=== PATIENT | male | born 1925 | race Caucasian/White ===

== ENCOUNTER → 2016-08-26 | Outpatient (CLI) | payer BC ==
[~2016-08-26] MED LIST: ACET325T96 PO; ACET650S11 PR; ANBESOL; ANBESOL TOP; APAP RE; ASCA500 PO; B-CO1CAP17 PO; B-COCAP2 PO; BEER PO; BENZ10GE38; BENZ10GE38 TOP; BISA10SU7 PR; BUSP5TAB59 PO; CALC0.2510 PO; CEPH500C2 PO; CHOL20009 PO; DIPH1TAB PO; FERR325T PO; FINA5TAB PO; FLUT0.0529 NAE; FLUT0.15 NAE; FRRS300 PO; FURO20TA PO; GABA-112 PO; HYDR2.5L TOP; IMDSR30 PO; ISOS30TA3 PO; LEVO100T7 PO; LEVO125T4 PO; LORA2CON IM; LVQ750 PO; MAGNSUS5 PO; MAGNSUS73 PO; NTRGSL/4 UT; NUTR-977 GJT; ONDA4TAB46 PO; OXGN; PANT40TA PO; PHNS125 PR; POLY1POW2 PO; RISP0.258 PO; RISP1TAB68 PO; SKINOIN22 TOP; SODIENE PR; SODIENE RE; TAMS0.4C38 PO; VENL150C PO; VENL1CAP92 PO; VENL37.593 PO; VENL75CA73 PO; VITACAP26 PO; VTMD1000 PO; [UNRECOGNIZED DRUG - SUPPLY] TOP; dulcolax RE; vitamin d PO
[2016-08-26 09:57] LABS: BLOOD UREA NITROGEN 36 mg/dl (7-18); BUN/CREATININE RATIO 19.7 (10-20); CALCIUM 9.1 mg/dl (8.5-10.1); CARBON DIOXIDE 25 mmol/L (21-32); CHLORIDE 105 mmol/L (98-107); GLUCOSE 101 mg/dl (70-99); POTASSIUM 4.1 mmol/L (3.5-5.1); SODIUM 140 mmol/L (136-145)
[2016-08-26 10:08] LABS: FERRITIN 62.9 ng/ml (8.0-388.0); TOTAL IRON BINDING CAPACITY 265 mcg/dl (250-450)
--- NOTE | 2016-09-01 07:12 | CODING QUERY NO DIAGNOSIS ---
: 1925 TREATMENT RENDERED WITHOUT A DIAGNOSIS To promote full compliance with coding requirements relating to patient care, physician participation is requested in all cases of production laborer uncertainty. Please assist us with providing a diagnosis/symptom for the test(s) below: A diagnosis/symptom was not documented on your Order. A valid diagnosis/symptom is required to bill all insurances. Please remember that we are unable to code a diagnosis of rule out, probable, possible, questionable, or suspected. Tests that require a diagnosis: * Iron DIAGNOSIS: * Ferritin DIAGNOSIS: Provider Signature: Date: Thank you Trisha Martinez Health Information Management Once completed, please kindly fax back to [phone] For questions please call [phone]
== END ==
LOC: C.LABFOXAN 09:14
PROVIDERS: ATTEND Internal Medicine
DX: R94.6 Abnormal results of thyroid function studies (principal); D63.1 Anemia in chronic kidney disease; D64.9 Anemia, unspecified

== ENCOUNTER → 2016-08-31 | Outpatient (CLI) | payer BC ==
[2016-08-31 09:57] LABS: HEMATOCRIT 35.3 % (42-52); MEAN CELL VOLUME 85.1 fL (80-100); MEAN CORPUSCULAR HGB CONC 32.9 g/dl (32-36); MEAN PLATELET VOLUME 10.9 fL (7.4-10.4); PLATELET COUNT 322 K/uL (130-400); RED BLOOD COUNT 4.15 M/uL (4.7-6.1); WHITE BLOOD COUNT 5.89 K/uL (4.8-10.8)
== END ==
LOC: C.LABFOXAN 09:06
PROVIDERS: ATTEND Internal Medicine
DX: D64.9 Anemia, unspecified (principal)

== ENCOUNTER → 2016-09-10 | Outpatient (CLI) | payer BC ==
[2016-09-10 12:09] LABS: HEMATOCRIT 33.2 % (42-52); MEAN CELL VOLUME 85.3 fL (80-100); MEAN CORPUSCULAR HGB CONC 32.8 g/dl (32-36); MEAN PLATELET VOLUME 10.6 fL (7.4-10.4); PLATELET COUNT 318 K/uL (130-400); RED BLOOD COUNT 3.89 M/uL (4.7-6.1); WHITE BLOOD COUNT 10.29 K/uL (4.8-10.8)
== END ==
LOC: C.LABFOXAN 11:43
PROVIDERS: ATTEND Internal Medicine
DX: K62.5 Hemorrhage of anus and rectum (principal)

== ENCOUNTER 2016-09-20 18:33 | Inpatient (IN) | payer BC, OTHER ==
[~2016-09-20] VITALS: Ht 165.1 cm; Wt 64.4 kg
[~2016-09-20 18:33] MED LIST changes: -ANBESOL TOP; -B-CO1CAP17 PO; -BENZ10GE38; -BENZ10GE38 TOP; -BUSP5TAB59 PO; -CEPH500C2 PO; -FERR325T PO; -FLUT0.0529 NAE; -FLUT0.15 NAE; -GABA-112 PO; -ISOS30TA3 PO; -LEVO100T7 PO; -LORA2CON IM; -LVQ750 PO; -MAGNSUS73 PO; -NTRGSL/4 UT; -NUTR-977 GJT; -ONDA4TAB46 PO; -OXGN; -POLY1POW2 PO; -RISP0.258 PO; -RISP1TAB68 PO; -SKINOIN22 TOP; -SODIENE PR; -VENL150C PO; -VENL1CAP92 PO; -VITACAP26 PO; -VTMD1000 PO; -dulcolax RE; -vitamin d PO
[2016-09-20 18:41] VITALS: Ht 165.1 cm; Wt 64.4 kg
[2016-09-20] MEDS ORDERED: SODIUM CHLORIDE 0.9% 1000ML 1,000 ML IV STA (18:46)
--- NOTE | 2016-09-20 18:48 | EMERGENCY ROOM VISIT NOTE ---
History Report prepared by Luis M: Larisa Kimball Under the Supervision of: Dr. Shravan Diaz D.O. First contact with patient: 18:37 Stated Complaint: GI BLEED History of Present Illness The patient is a 89 year old male who presents to the Emergency Room with complaints of constant right shoulder pain beginning today. The patient states that he fell on his shoulder today and he thinks that it is broken. He complains of a headache. The patient's facility where he lives was concerned that he had a GI bleed. The patient denies any black stools, bloody stools, chest pain, and abdominal pain. Per nursing staff, they are not sure of the patient's mental status. Source of History: patient, nursing staff Onset: today Position: shoulder (right) Timing: constant Associated Symptoms: + headache, No abdominal pain, No chest pain Note: The patient denies any black stools, bloody stools. Review of Systems See HPI for pertinent positives & negatives. A total of 10 systems reviewed and were otherwise negative. Past Medical & Surgical Medical Problems: (1) Anemia (2) Atrial fibrillation (3) AVM (arteriovenous malformation) (4) Benign prostatic hyperplasia (5) Chronic kidney disease stage 3 (6) Coronary artery disease (7) Diabetes mellitus type 2 (8) Diastolic CHF, chronic (9) Fracture of proximal end of left humerus (10) Gastroesophageal reflux disease (11) History meningioma T3-T4 (12) History of amiodarone toxicity (13) History of atrial fibrillation (14) History of colonic AVM's (15) History of delirium (16) History of duodenal ulcer (17) History of hyperparathyroidism (18) History of supraventricular tachycardia (19) Hyperlipidemia (20) Hypothyroidism (21) Idiopathic peripheral neuropathy (22) Iron deficiency anemia (23) Melena (24) Mitral valve regurgitation (25) Monoclonal gammopathy (26) Mood disorder (27) Osteoporosis (28) Peripheral vascular disease (29) Restless leg syndrome Surgical Problems: (1) s/p appendectomy (2) s/p cataract surgery (3) s/p inguinal hernia repair (4) s/p left JEFFREY 1996 (5) s/p ORIF right hip fx 2010 (6) s/p resection thoracic meningioma Family History Omit secondary to age Social History Smoking Status: Never Smoker Drug Use: none Marital Status: Housing Status: lives with family Occupation Status: retired Current/Historical Medications Scheduled Ascorbic Acid (Vitamin C), 1 TAB PO DAILY Bisacodyl (Bisac-Evac), 1 SUPP SC UD Calcitriol (Rocaltrol Cap), 0.25 MCG PO 3XWK Cholecalciferol (Vitamin D), 2,000 UNITS PO DAILY Ferrous Sulfate (Iron Supplement *), 325 MG PO DAILY Finasteride (Proscar), 5 MG PO DAILY Fluticasone Propionate (Nasal) (Flonase), 2 SPRAYS VINNY DAILY Furosemide (Lasix), 20 MG PO BID Hydrocortisone (Topical) (Hydrocortisone), 1 APPLN TOP BID Isosorbide Mononitrate (Isosorbide Mononitrate ER), 30 MG PO DAILY Levothyroxine Sodium (Levothyroxine Sodium), 1 TAB PO DAILY Magnesium Hydroxide (Milk Of Magnesia), 30 ML PO UD Nitroglycerin (Nitrostat), 0.4 MG UT PRN Pantoprazole (Protonix), 40 MG PO DAILY Sodium Phosphates (Qc Enema), 1 SUPP RE DIRECTED Tamsulosin Hcl (Flomax), 0.4 MG PO HS Venlafaxine Hcl (Venlafaxine Extended Rel), 37.5 MG PO DAILY Venlafaxine Hcl (Venlafaxine Extended Rel), 75 MG PO DAILY Vitamin B Cmplx/Vitc/Folic Ac (Nephrocaps), 1 CAP PO DAILY [Apap Suppository], 650 MG RE DIRECTED [Beer], 12 OZ PO PRN [Beer], 12 OZ PO DAILY [Opsite Dressing], 1 APPLN TOP DIRECTED Scheduled PRN Acetaminophen (Tylenol Supp), 1 SUPP SC Q4 PRN for Pain or Fever Acetaminophen Tab (Tylenol), 650 MG PO Q4 PRN for Pain or Fever Diphenhydramine Hcl (Benadryl Allergy), 1 CAP PO DIRECTED PRN for Itching Promethazine HCl (Phenadoz), 1 SUPP SC Q6 PRN for Nausea Miscellaneous Medications [anbesol gel] Allergies Coded Allergies: Amiodarone (Unverified Allergy, Severe, pulmonary toxicity, 08/28/16) Nortriptyline (Verified Allergy, Unknown, 08/28/16) Aspirin (Verified Adverse Reaction, Intermediate, HX GASTRIC ULCER, ) NSAIDs (Verified Adverse Reaction, Unknown, GI SYMPTOMS, 08/28/16) hx duodinal ulcer Physical Exam Vital Signs Date Time Temp Pulse Resp B/P Pulse Ox O2 Delivery O2 Flow Rate FiO2 09/20/16 20:23 78 18 124/63 94 Room Air 09/20/16 19:11 81 09/20/16 18:41 36.5 81 16 113/70 97 Room Air Physical Exam CONSTITUTIONAL/VITAL SIGNS: Reviewed / noted above. GENERAL: Slightly pale in appearance. INTEGUMENTARY: Warm, dry, and [place]. HEAD: Normocephalic. EYES: without scleral icterus or trauma. ENT/OROPHARYNX: clear and moist. LYMPHADENOPATHY/NECK: Is supple without lymphadenopathy or meningismus. RESPIRATORY: Lungs clear and equal. CARDIOVASCULAR: Regular rate and rhythm. GI/ABDOMEN: Soft and nontender. No organomegaly or pulsatile mass. No rebound or guarding. Normal bowel sounds. EXTREMITIES: Warm and well perfused. BACK: No CVA tenderness. NEUROLOGICAL: Intact without focal deficits. PSYCHIATRIC: normal affect. MUSCULOSKELETAL: Normally developed with good muscle tone. RECTAL: Black guaiac positive stool. Medical Decision & Procedures ER Provider Diagnostic Interpretation: X ray results and stated below per my interpretation and radiology interpretation. CHEST ONE VIEW PORTABLE FINDINGS: Left shoulder arthroplasty is unchanged in appearance. No pneumothorax or pleural effusion is present. Cardiomediastinal silhouette is stable. There are healed bilateral rib fractures. Mild bibasilar opacities, left greater than right, are present. There is no evidence of pulmonary edema. IMPRESSION: 1. Bibasilar opacities, left greater than right. The findings could reflect atelectasis or less likely consolidation. Radiographic follow up is recommended. 2. No pneumothorax. 3. Numerous old bilateral rib fractures. Electronically signed by: Eamon Rosario M.D. 09/20/2016 8:10 PM Dictated Date/Time: 09/20/2016 8:08 PM RIGHT SHOULDER MIN 2 VIEWS ROUTINE FINDINGS: Alignment of the right shoulder is anatomic. There is no acute fracture. There are multiple old right-sided rib fractures. There is mild arthritis of the right shoulder. Deformity of the right clavicle is likely old. IMPRESSION: No acute fracture or dislocation of the right shoulder. Electronically signed by: Eamon Rosario M.D. 09/20/2016 8:12 PM Dictated Date/Time: 09/20/2016 8:10 PM Laboratory Results 09/20/16 18:30 Red Blood Count 2.81, Mean Corpuscular Volume 83.6, Mean Corpuscular Hemoglobin 28.1, Mean Corpuscular Hemoglobin Concent 33.6, Mean Platelet Volume 9.1, Neutrophils (%) (Auto) 71.2, Lymphocytes (%) (Auto) 18.7, Monocytes (%) (Auto) 6.1, Eosinophils (%) (Auto) 2.6, Basophils (%) (Auto) 0.3, Neutrophils # (Auto) 6.34, Lymphocytes # (Auto) 1.66, Monocytes # (Auto) 0.54, Eosinophils # (Auto) 0.23, Basophils # (Auto) 0.03 09/20/16 18:30 Test 09/20/16 18:30 White Blood Count 8.90 K/uL (4.8-10.8) Red Blood Count 2.81 M/uL (4.7-6.1) Hemoglobin 7.9 g/dL (14.0-18.0) Hematocrit 23.5 % (42-52) Mean Corpuscular Volume 83.6 fL (80-100) Mean Corpuscular Hemoglobin 28.1 pg (25-34) Mean Corpuscular Hemoglobin Concent 33.6 g/dl (32-36) Platelet Count 488 K/uL (130-400) Mean Platelet Volume 9.1 fL (7.4-10.4) Neutrophils (%) (Auto) 71.2 % Lymphocytes (%) (Auto) 18.7 % Monocytes (%) (Auto) 6.1 % Eosinophils (%) (Auto) 2.6 % Basophils (%) (Auto) 0.3 % Neutrophils # (Auto) 6.34 K/uL (1.4-6.5) Lymphocytes # (Auto) 1.66 K/uL (1.2-3.4) Monocytes # (Auto) 0.54 K/uL (0.11-0.59) Eosinophils # (Auto) 0.23 K/uL (0-0.5) Basophils # (Auto) 0.03 K/uL (0-0.2) RDW Standard Deviation 51.5 fL (36.4-46.3) RDW Coefficient of Variation 16.9 % (11.5-14.5) Immature Granulocyte % (Auto) 1.1 % Immature Granulocyte # (Auto) 0.10 K/uL (0.00-0.02) Anisocytosis PRESENT Spherocytes 1+ Prothrombin Time 10.5 SECONDS (9.0-12.0) Prothromb Time International Ratio 1.0 (0.9-1.1) Activated Partial Thromboplast Time 30.7 SECONDS (21.0-31.0) Partial Thromboplastin Ratio 1.2 Anion Gap 10.0 mmol/L (3-11) Estimated GFR () 33.3 Estimated GFR (Non- 28.7 BUN/Creatinine Ratio 19.8 (10-20) Calcium Level 8.8 mg/dl (8.5-10.1) Total Bilirubin 0.2 mg/dl (0.2-1) Direct Bilirubin < 0.1 mg/dl (0-0.2) Aspartate Amino Transf (AST/SGOT) 14 U/L (15-37) Alanine Aminotransferase (ALT/SGPT) 18 U/L (12-78) Alkaline Phosphatase 81 U/L (45-117) Total Creatine Kinase 40 U/L (39-308) Creatine Kinase MB 2.6 ng/ml (0.5-3.6) Creatine Kinase MB Ratio 6.5 (0-3.0) Troponin I < 0.015 ng/ml (0-0.045) Total Protein 7.1 gm/dl (6.4-8.2) Albumin 2.9 gm/dl (3.4-5.0) Laboratory results as stated above per my review. Medications Administered Medications (Trade) Dose Ordered Sig/Reina Route Start Time Stop Time Status Last Admin Dose Admin Sodium Chloride (Nss 1000ml) 1,000 ml @ 200 mls/hr Q5H STAT IV 09/20/16 18:46 09/20/16 23:45 09/20/16 18:57 200 MLS/HR ECG Indication: other (shoulder pain) Rate (beats per minute): 79 Rhythm: sinus rhythm Findings: 1st degree AV block, no ectopy, other (no acute injury) ED Course 1836: Previous medical records were reviewed. The patient was evaluated in room A4B. A complete history and physical examination was performed. 1845: Sodium Chloride 80820 ml @ 200 mls/hr IV. 2030: Pantoprazole Sodium 1ea IV. 2041: Discussed the patient's case with Dr. Conner. The patient will be evaluated for further treatment and disposition. 2046: On reevaluation, the patient is hemodynamically stable. I discussed the results and findings with the patient. He verbalized agreement of the treatment plan. I spoke with Dr. Conner of the [facility] [place] [facility] [facility]. The patient will be evaluated for further management and care. Medical Decision Differential includes acute coronary syndrome, myocardial infarction, CVA, TIA, anemia, infection, pneumonia, UTI, pyelonephritis, poor nutrition, dehydration, electrolyte disturbance,hypoglycemia. This is a 89-year-old male who presents to the ED with a chief complaint of GI bleed. He was sent from [facility] for this. The patient complained of some right shoulder pain and thought he was here for a fall. He does have range of motion with the right shoulder. X-ray of the shoulder did not show fracture. Patient had no other complaints. He does appear slightly pale on exam. Stool is black and guaiac positive. Hemoglobin is 7.9. BUN is 40 creatinine is 2.0. The patient was told the results of the tests. He was given IV fluids. IV Protonix was given. I spoke with the hospitalist, who saw the patient for further inpatient care. Consults Time Called: 2028 Consulting Physician: Dr. Conner - [facility] [place] Returned Call: [phone] Discussed the patient's case with Dr. Conner. The patient will be evaluated for further treatment and disposition. Impression Primary Impression: Anemia Additional Impression: GI bleed Scribe Attestation The scribe's documentation has been prepared under my direction and personally reviewed by me in its entirety. I confirm that the note above accurately reflects all work, treatment, procedures, and medical decision making performed by me. Departure Information Dispostion Being Evaluated By Hospitalist Referrals Constantine Bautista (PCP) Problem Qualifiers
[2016-09-20 19:02] LABS: BASO % 0.3 %; BASO ABS # 0.03 K/uL (0-0.2); EOS % 2.6 %; HEMATOCRIT 23.5 % (42-52); IG% 1.1 %; LYMPH % 18.7 %; LYMPH ABS # 1.66 K/uL (1.2-3.4); MEAN CELL VOLUME 83.6 fL (80-100); MEAN CORPUSCULAR HEMOGLOBIN 28.1 pg (25-34); MEAN CORPUSCULAR HGB CONC 33.6 g/dl (32-36); MEAN PLATELET VOLUME 9.1 fL (7.4-10.4); MONO % 6.1 %; NEUT % 71.2 %; PLATELET COUNT 488 K/uL (130-400); RED BLOOD COUNT 2.81 M/uL (4.7-6.1)
[2016-09-20 19:12] LABS: PARTIAL THROMBOPLASTIN RATIO 1.2; PROTHROMBIN TIME (PATIENT) 10.5 SECONDS (9.0-12.0)
[2016-09-20 19:21] LABS: ALT/SGPT 18 U/L (12-78); AST/SGOT 14 U/L (15-37); BLOOD UREA NITROGEN 40 mg/dl (7-18); BUN/CREATININE RATIO 19.8 (10-20); CALCIUM 8.8 mg/dl (8.5-10.1); CARBON DIOXIDE 27 mmol/L (21-32); CHLORIDE 101 mmol/L (98-107); GLUCOSE 94 mg/dl (70-99); POTASSIUM 4.5 mmol/L (3.5-5.1); SODIUM 138 mmol/L (136-145)
[2016-09-20 19:28] LABS: ALKALINE PHOSPHATASE 81 U/L (45-117); ANISOCYTOSIS PRESENT; CKMB/CK RATIO 6.5 (0-3.0); COMPLETE YES; SPHEROCYTE 1+
--- NOTE | 2016-09-20 20:11 | DIAGNOSTIC IMAGING REPORT ---
CHEST ONE VIEW PORTABLE CLINICAL HISTORY: GI bleed. COMPARISON STUDY: Chest radiograph February 08, 2016. FINDINGS: Left shoulder arthroplasty is unchanged in appearance. No pneumothorax or pleural effusion is present. Cardiomediastinal silhouette is stable. There are healed bilateral rib fractures. Mild bibasilar opacities, left greater than right, are present. There is no evidence of pulmonary edema. IMPRESSION: 1. Bibasilar opacities, left greater than right. The findings could reflect atelectasis or less likely consolidation. Radiographic follow up is recommended. 2. No pneumothorax. 3. Numerous old bilateral rib fractures. Electronically signed by: Eamon Rosario M.D. 09/20/2016 8:10 PM Dictated Date/Time: 09/20/2016 8:08 PM
--- NOTE | 2016-09-20 20:13 | DIAGNOSTIC IMAGING REPORT ---
RIGHT SHOULDER MIN 2 VIEWS ROUTINE CLINICAL HISTORY: Right shoulder pain following fall. COMPARISON: Chest radiograph February 08, 2016. FINDINGS: Alignment of the right shoulder is anatomic. There is no acute fracture. There are multiple old right-sided rib fractures. There is mild arthritis of the right shoulder. Deformity of the right clavicle is likely old. IMPRESSION: No acute fracture or dislocation of the right shoulder. Electronically signed by: Eamon Rosario M.D. 09/20/2016 8:12 PM Dictated Date/Time: 09/20/2016 8:10 PM
[2016-09-20] MEDS ORDERED: PANTOprazole INJ 80 MG in DEXTROSE 5% 100ML IV SCH (20:45)
[2016-09-20] MEDS ORDERED: PANTOprazole INJ 40 MG in DEXTROSE 5% 100ML IV SCH (21:00)
[2016-09-20] MEDS ORDERED: FERR325T PO (21:14)
[2016-09-20] MEDS ORDERED: VENL150C PO (21:14)
[2016-09-20] MEDS ORDERED: DiphenhydrAMINE HCL 50 MG/ML VIAL IV PRN (21:15)
[2016-09-20] MEDS ORDERED: FLUT0.0529 NAE (21:15)
[2016-09-20] MEDS ORDERED: LORAZEPAM 2 MG/ML 1 ML VIAL IV PRN (21:15)
[2016-09-20] MEDS ORDERED: PROMETHAZINE HCL INJ 12.5 MG in SODIUM CHLORIDE 0.9% 50ML 50 ML IV PRN (21:15)
[2016-09-20] MEDS ORDERED: ONDANSETRON INJ 2 MG/ML 2 ML VIAL IV PRN (21:15)
[2016-09-20] MEDS ORDERED: MoRPHine SULFATE 2 MG/ML CARP IV PRN (21:15)
[2016-09-20] MEDS ORDERED: FLUT0.15 NAE ×2 (21:16→21:40)
[2016-09-20] MEDS ORDERED: LEVO100T7 PO (21:22)
[2016-09-20] MEDS ORDERED: B-CO1CAP17 PO (21:22)
[2016-09-20] MEDS ORDERED: POLY1POW2 PO (21:22)
[2016-09-20] MEDS ORDERED: NTRGSL/4 UT (21:24)
[2016-09-20] MEDS ORDERED: BENZ10GE38 TOP (21:28)
[2016-09-20] MEDS ORDERED: SODIENE PR (21:33)
[2016-09-20] MEDS ORDERED: MAGNSUS73 PO (21:33)
[2016-09-20] MEDS ORDERED: SKINOIN22 TOP (21:43)
[2016-09-20 21:49] VITALS: BMI 25.0
[2016-09-20 21:55] VITALS: BP 126/61; PULSE 78; TEMP 36.4; O2SAT 98
[2016-09-20 22:24] VITALS: BP 104/55; PULSE 73; TEMP 37.4; O2SAT 96
[2016-09-20] MEDS: SODIUM CHLORIDE 0.9% 1000ML 1,000 ML IV SCH (22:30)
[2016-09-20 22:48] LABS: HEMATOCRIT 20.4 % (42-52)
[2016-09-20 23:00] VITALS: BP 112/58; PULSE 71
--- NOTE | 2016-09-20 23:08 | History and Physical ---
History & Physical Date & Time of Service: Sep 20, 2016 at 22:53 Chief Complaint: Peptic Ulcer Disease,Upper Gi Bleed Primary Care Physician: Constantine Bautista History of Present Illness Source: patient, spouse The patient is an 89-year-old male presents emergency department with complaint of right shoulder pain that began earlier in the day per his statement however, nurses at [facility] have referred him for possible upper GI bleeding due to dark tarry stools. The patient has some baseline dementia, and his is with him the history of present illness. She reports that he has had a history of peptic ulcer disease with bleeding, the most recently received 2 units of packed red blood cells by Dr. Morrell on August 28. The patient denies abdominal or rectal pain, or any obvious bleeding issues. His reports that his last meal was at lunchtime. Past Medical/Surgical History Medical Problems: (1) Anemia Status: Chronic (2) Atrial fibrillation Status: Chronic (3) AVM (arteriovenous malformation) Status: Resolved (4) Benign prostatic hyperplasia Status: Chronic (5) Chronic kidney disease stage 3 Status: Chronic (6) Coronary artery disease Status: Chronic (7) Diabetes mellitus type 2 Permanent Comment: diet-controlled Status: Chronic (8) Diastolic CHF, chronic Status: Chronic (9) Fracture of proximal end of left humerus Status: Resolved (10) Gastroesophageal reflux disease Status: Chronic (11) History meningioma T3-T4 Permanent Comment: resected by Dr. Norris 11/06/14 Status: Chronic (12) History of amiodarone toxicity Status: Chronic (13) History of atrial fibrillation Status: Chronic (14) History of colonic AVM's Status: Chronic (15) History of delirium Status: Chronic (16) History of duodenal ulcer Status: Chronic (17) History of hyperparathyroidism Status: Chronic (18) History of supraventricular tachycardia Status: Chronic (19) Hyperlipidemia Status: Chronic (20) Hypothyroidism Status: Chronic (21) Idiopathic peripheral neuropathy Status: Chronic (22) Iron deficiency anemia Status: Chronic (23) Mitral valve regurgitation Status: Chronic (24) Monoclonal gammopathy Status: Chronic (25) Mood disorder Status: Chronic (26) Osteoporosis Status: Chronic (27) Peripheral vascular disease Status: Chronic (28) Restless leg syndrome Status: Chronic Surgical Problems: (1) s/p appendectomy Status: Chronic (2) s/p cataract surgery Status: Chronic (3) s/p inguinal hernia repair Status: Chronic (4) s/p left JEFFREY 1996 Status: Chronic (5) s/p ORIF right hip fx 2010 Status: Chronic (6) s/p resection thoracic meningioma Permanent Comment: Dr. Norris 11/06/14 Status: Chronic Family History Omit secondary to age Social History Smoking Status: Unknown if Ever Smoked Smokeless Tobacco Use: No Alcohol Use: none Drug Use: none Marital Status: Housing status: lives with family, assisted living Occupational Status: retired Immunizations History of Influenza Vaccine: Unknown Influenza Vaccine Date: Jun 13, 2012 History of Tetanus Vaccine?: Unknown History of Pneumococcal: Unknown Pneumococcal Date: December 23, 2000 History of Hepatitis B Vaccine: Unknown Multi-Drug Resistant Organisms History of MDRO: No Allergies Coded Allergies: Amiodarone (Unverified Allergy, Severe, pulmonary toxicity, 08/28/16) Nortriptyline (Verified Allergy, Unknown, 08/28/16) Aspirin (Verified Adverse Reaction, Intermediate, HX GASTRIC ULCER, ) NSAIDs (Verified Adverse Reaction, Unknown, GI SYMPTOMS, 08/28/16) hx duodinal ulcer Home Medications Scheduled Ascorbic Acid (Vitamin C), 500 MG PO QAM Calcitriol (Rocaltrol Cap), 0.25 MCG PO 3XWK Cholecalciferol (Vitamin D), 2,000 INTER.UNIT PO QAM Ferrous Sulfate (Ferrous Sulfate), 325 MG PO QAM Finasteride (Proscar), 5 MG PO QAM Fluticasone Propionate (Nasal) (Flonase Allergy Relief), 2 SPRAYS VINNY QAM Furosemide (Lasix), 20 MG PO BID Isosorbide Mononitrate (Isosorbide Mononitrate ER), 30 MG PO QAM Levothyroxine Sodium (Levothyroxine Sodium), 100 MCG PO QAM Pantoprazole (Protonix), 40 MG PO QPM Polyethylene Glycol 3350 (Bulk (Polyethylene Glycol 3350), 6.5 GM PO QAM Tamsulosin Hcl (Flomax), 0.4 MG PO HS Venlafaxine Hcl (Effexor Xr), 150 MG PO QAM Vitamin B Cmplx/Vitc/Folic Ac (Nephrocaps), 1 CAP PO QAM Scheduled PRN Acetaminophen (Tylenol Supp), 1 SUPP NE Q4H PRN for Pain or Fever Acetaminophen Tab (Tylenol), 650 MG PO Q4H PRN for Pain or Fever Benzocaine (Dental) (Anbesol), 1 APPLN TOP TID PRN for Pain Bisacodyl (Bisac-Evac), 1 SUPP NE UD PRN for Constipation Diphenhydramine Hcl (Benadryl Allergy), 25 MG PO Q4H PRN for Itching Magnesium Hydroxide (Milk of Magnesia 400 mg/5Ml), 30 ML PO UD PRN for Constipation Nitroglycerin (Nitrostat), 0.4 MG UT UD PRN for Chest Pain Promethazine HCl (Phenadoz), 1 SUPP NE Q6H PRN for Nausea Skin Protectants, Misc. (A+D First Aid), 1 APPLN TOP TID PRN for Skin Irritation Sodium Phosphate/Biphosphate (Fleet Enema), 1 EA NE UD PRN for Constipation [Beer], 12 OZ PO Q24H PRN for For Wishes Review of Systems The patient denies chest pain, palpitations, shortness of breath, cough, lower extremity swelling, vision change, hearing change, sore throat, fevers, chills, sweats, weight change, fatigue, nausea, vomiting, abdominal pain, pelvic pain, blood in urine or stool, dysuria, urinary frequency or urgency, lightheadedness , dizziness, headache, rash, abnormal bruising or bleeding, imbalance, focal or generalized weakness, numbness or tingling in arms or legs, back or neck pain, night sweats, or allergy symptoms. The review of systems is otherwise negative other than for that already noted above, and at least 10 systems have been reviewed. Physical Exam Vital Signs Date Time Temp Pulse Resp B/P Pulse Ox O2 Delivery O2 Flow Rate FiO2 09/20/16 22:24 37.4 73 18 104/55 96 2.0 09/20/16 21:55 36.4 78 18 126/61 98 Room Air 2.0 09/20/16 21:49 Nasal Cannula 09/20/16 21:31 36.5 75 18 132/64 99 09/20/16 21:13 75 18 132/64 99 Nasal Cannula 2.0 09/20/16 20:23 78 18 124/63 94 Room Air 09/20/16 19:11 81 09/20/16 18:41 36.5 81 16 113/70 97 Room Air The patient is awake, well-developed and adequately nourished, alert and oriented 3, normocephalic and atraumatic, lying in bed and in no acute distress. HEENT--PERRL, EOMI, mucous membranes and oropharynx dry. Neck--supple, no JVD or bruits, thyroid normal, trachea midline, no adenopathy. Heart--normal S1 and S2, no extra beats, no murmurs, rubs or gallops. Lungs--clear bilaterally, no respiratory distress, no accessory muscle use. Abdomen--normal bowel sounds and soft, nontender and nondistended, no hernias or masses, no organomegaly. Extremities--no cyanosis, clubbing or edema. There are good distal pulses b/l. Dermatologic--normal skin turgor, normal color, warm and dry, no abnormal lymph nodes, no rash. Neurologic--cranial nerves II through XII grossly intact, motor and sensory examination normal. Rheumatologic--normal range of motion for age. Psychiatric--normal affect. Diagnostics Laboratory Results Results Past 24 Hours Test 09/20/16 18:30 09/20/16 22:22 Range/Units White Blood Count 8.90 4.8-10.8 K/uL Red Blood Count 2.81 4.7-6.1 M/uL Hemoglobin 7.9 6.7 14.0-18.0 g/dL Hematocrit 23.5 20.4 42-52 % Mean Corpuscular Volume 83.6 80-100 fL Mean Corpuscular Hemoglobin 28.1 25-34 pg Mean Corpuscular Hemoglobin Concent 33.6 32-36 g/dl Platelet Count 488 130-400 K/uL Mean Platelet Volume 9.1 7.4-10.4 fL Neutrophils (%) (Auto) 71.2 % Lymphocytes (%) (Auto) 18.7 % Monocytes (%) (Auto) 6.1 % Eosinophils (%) (Auto) 2.6 % Basophils (%) (Auto) 0.3 % Neutrophils # (Auto) 6.34 1.4-6.5 K/uL Lymphocytes # (Auto) 1.66 1.2-3.4 K/uL Monocytes # (Auto) 0.54 0.11-0.59 K/uL Eosinophils # (Auto) 0.23 0-0.5 K/uL Basophils # (Auto) 0.03 0-0.2 K/uL RDW Standard Deviation 51.5 36.4-46.3 fL RDW Coefficient of Variation 16.9 11.5-14.5 % Immature Granulocyte % (Auto) 1.1 % Immature Granulocyte # (Auto) 0.10 0.00-0.02 K/uL Anisocytosis PRESENT Spherocytes 1+ Prothrombin Time 10.5 9.0-12.0 SECONDS Prothromb Time International Ratio 1.0 0.9-1.1 Activated Partial Thromboplast Time 30.7 21.0-31.0 SECONDS Partial Thromboplastin Ratio 1.2 Sodium Level 138 136-145 mmol/L Potassium Level 4.5 3.5-5.1 mmol/L Chloride Level 101 98-107 mmol/L Carbon Dioxide Level 27 21-32 mmol/L Anion Gap 10.0 3-11 mmol/L Blood Urea Nitrogen 40 7-18 mg/dl Creatinine 2.00 0.60-1.40 mg/dl Estimated GFR () 33.3 Estimated GFR (Non- 28.7 BUN/Creatinine Ratio 19.8 10-20 Random Glucose 94 70-99 mg/dl Calcium Level 8.8 8.5-10.1 mg/dl Total Bilirubin 0.2 0.2-1 mg/dl Direct Bilirubin < 0.1 0-0.2 mg/dl Aspartate Amino Transf (AST/SGOT) 14 15-37 U/L Alanine Aminotransferase (ALT/SGPT) 18 12-78 U/L Alkaline Phosphatase 81 45-117 U/L Total Creatine Kinase 40 39-308 U/L Creatine Kinase MB 2.6 0.5-3.6 ng/ml Creatine Kinase MB Ratio 6.5 0-3.0 Troponin I < 0.015 0-0.045 ng/ml Total Protein 7.1 6.4-8.2 gm/dl Albumin 2.9 3.4-5.0 gm/dl Diagnostic Radiology Patient Name: ARNALDO DE LA ROSA Unit Number: [id number] Dictated: 09/20/162009 Transcribed: 09/20/162009 JA Printed Date/Time: [~ rep prt dt]/[~ rep prt tm] [~ rep ct labl] - [~ rep ct ivnm] [facility] [place] [address] Dictated: 09/20/162009 Transcribed: 09/20/162009 JA Printed Date/Time: [~ rep prt dt]/[~ rep prt tm] [~ rep ct labl] - [~ rep ct ivnm] RIGHT SHOULDER MIN 2 VIEWS ROUTINE CLINICAL HISTORY: Right shoulder pain following fall. COMPARISON: Chest radiograph February 08, 2016. FINDINGS: Alignment of the right shoulder is anatomic. There is no acute fracture. There are multiple old right-sided rib fractures. There is mild arthritis of the right shoulder. Deformity of the right clavicle is likely old. IMPRESSION: No acute fracture or dislocation of the right shoulder. Electronically signed by: Eamon Rosario M.D. 09/20/2016 8:12 PM Dictated Date/Time: 09/20/2016 8:10 PM The status of this report is Signed. Draft = Not yet reviewed or approved by Radiologist. Signed = Reviewed and approved by Radiologist. <AttendingPhy></AttendingPhy> <FamilyPhy>Constantine Bautista</FamilyPhy> < PrimaryPhy>[facility]</PrimaryPhy> <UnitNumber>[id number]</UnitNumber> < VisitNumber>[id number]</VisitNumber> <PatientName>RJARNALDO</PatientName > <DateOfBirth>1925</DateOfBirth> <Location>[facility]</Location> <ServiceDate> 09/20/16</ServiceDate> <MNE>ESINDI</MNE> <OrderingPhy>Shravan Diaz D.O.</ OrderingPhy> <OrderingPhyMNE>f rep ord dr sandra</OrderingPhyMNE> <DictatingPhyMNE> f rep dict dr sandra</DictatingPhyMNE> <CCListMNE>f rep ct boaz</CCListMNE> < AdmittingPhyMNE>f pt admit dr sandra</AdmittingPhyMNE> <AttendingPhyMNE>f pt attend dr sandra</AttendingPhyMNE> <ConsultingPhyMNE>f pt consult dr sandra</ConsultingPhyMNE> <FamilyPhyMNE>f pt fam dr sandra</FamilyPhyMNE> <OtherPhyMNE>f pt other dr sandra</OtherPhyMNE> < PrimaryPhyMNE>f pt prim care dr sandra</PrimaryPhyMNE> <ReferringPhyMNE>f pt referring dr sandra</ReferringPhyMNE> [~ rep ct add3]] CHEST ONE VIEW PORTABLE CLINICAL HISTORY: GI bleed. COMPARISON STUDY: Chest radiograph February 08, 2016. FINDINGS: Left shoulder arthroplasty is unchanged in appearance. No pneumothorax or pleural effusion is present. Cardiomediastinal silhouette is stable. There are healed bilateral rib fractures. Mild bibasilar opacities, left greater than right, are present. There is no evidence of pulmonary edema. IMPRESSION: 1. Bibasilar opacities, left greater than right. The findings could reflect atelectasis or less likely consolidation. Radiographic follow up is recommended. 2. No pneumothorax. 3. Numerous old bilateral rib fractures. Electronically signed by: Eamon Rosario M.D. 09/20/2016 8:10 PM Dictated Date/Time: 09/20/2016 8:08 PM Th EKG EKG shows normal sinus rhythm at 79 bpm with first-degree heart block and no acute ST-T changes. Impression Assessment and Plan Upper GI bleed with history of peptic ulcer disease, and recent transfusion on August 28 of 2 units PRBC's--the patient was admitted to the telemetry unit for close monitoring. Will check an H&H every 6 hours, keep nothing by mouth status, placed on IV fluids, consult gastroenterology for possible EGD. We will continue the Protonix bolus and drip in the emergency department, and have Zofran 4 mg IV every 6 hours when necessary. Anemia--hemoglobin is 7.9 on entrance laboratories, but is likely actually lower than that due to hemoconcentration and dehydration. We'll transfuse 1 unit of PRBCs now, follow H&H as noted above. Next Atrial fibrillation/CAD/hypertension--the patient is being admitted to telemetry unit for rhythm monitoring. While he is nothing by mouth, we will hold furosemide 20 mg by mouth twice a day, and isosorbide mononitrate ER 30 mg by mouth daily. If blood pressure were to develop and warrants treatment, will start Nitropaste 1 inch to the anterior chest wall every 6 hours. BPH--while nothing by mouth, hold finasteride 5 mg by mouth daily and tamsulosin 0.4 mg by mouth at bedtime, will monitor for urinary retention. Hypothyroidism--change levothyroxin 125 mg by mouth daily to 62.5 mg IV daily. Anxiety/depression-- while nothing by mouth, hold venlafaxine ER 112.5 mg by mouth daily, and have available lorazepam 0.5 mg IV every 6 hours when necessary. Regular beer intake--his [place] records show 12 ounces by mouth daily and 12 ounce by mouth daily when necessary. He'll need to be monitored for withdrawal. Level of Care Telemetry Advanced Directives Existing Advance Directive: No Existing Living Will: No Existing Power of Animal Sitter: Yes Resuscitation Status FULL RESUSCITATION VTE Prophylaxis VTE Risk Assessment Done? Y/N: Yes Risk Level: Moderate Given or contraindicated: SCD's Social Service Consult Lives in Snf
[2016-09-20 23:10] VITALS: BP 112/58; PULSE 70; TEMP 37.1; O2SAT 93
[2016-09-21] VITALS (14 sets, daily range): BP systolic 108–140; BP diastolic 46–81; PULSE 59–88; TEMP 36.4–36.9; O2SAT 95–99
[2016-09-21] MEDS: PANTOprazole INJ 40 MG in DEXTROSE 5% 100ML IV SCH ×4 (01:47→17:06)
[2016-09-21 03:04] LABS: HEMATOCRIT 22.6 % (42-52); MEAN CELL VOLUME 83.1 fL (80-100); MEAN CORPUSCULAR HEMOGLOBIN 28.3 pg (25-34); MEAN CORPUSCULAR HGB CONC 34.1 g/dl (32-36); MEAN PLATELET VOLUME 8.7 fL (7.4-10.4); PLATELET COUNT 369 K/uL (130-400); RED BLOOD COUNT 2.72 M/uL (4.7-6.1); WHITE BLOOD COUNT 8.52 K/uL (4.8-10.8)
[2016-09-21 03:23] LABS: BUN/CREATININE RATIO 21.8 (10-20); CALCIUM 8.2 mg/dl (8.5-10.1); CREATININE 1.9 mg/dl (0.60-1.40); MAGNESIUM 2.1 mg/dl (1.8-2.4); POTASSIUM 4.4 mmol/L (3.5-5.1)
[2016-09-21 03:27] LABS: BASO ABS # 0.22 K/uL (0-0.2); BASOPHIL % 2.6 % (0-2); COMPLETE YES; EOSINOPHIL % 1.7 %; LYMPH ABS # 1.93 K/uL (1.2-3.4); LYMPHOCYTE % 22.6 %; MYELOCYTE % 0.9 %; NEUTROPHILS % 69.6 %
[2016-09-21] MEDS: FLUTICASONE PROPIONATE NA SPR 16 GM BTL NAE SCH (08:36)
[2016-09-21] MEDS ORDERED: LEVOTHYROXINE SODIUM INJ 62.5 MCG in SYRINGE 0 ML IV SCH (09:00)
[2016-09-21 09:40] LABS: HEMATOCRIT 23.7 % (42-52)
--- NOTE | 2016-09-21 10:54 | Gastrointestinal Consultation ---
Gastrointestinal Consultation Date of Consultation: Sep 21, 2016 Reason for Consultation: melena, anemia History of Present Illness Patient is a 89 year old male with past medical history significant for PUD, who is being evaluated for anemia and melena. He is unsure if he is having a black or tarry stools and is not oriented today. Per previous notes, nursing staff at the [facility] report dark tarry stools. He was brought to [facility] where he was found to have a HGB of 6.7. He recieved one unit of blood and responded with a HGB of 7.9 today. He has no complaints toady. Denies chest pain , SOB. He is not reporting any GI symptoms. Nursing staff on report no BM since he was admitted. EGD 2016: duodenal and gastric ulcers ROS is limited to due patient inability to provide accurate medical history. His was not at bedside during assessment. Past Medical/Surgical History Medical Problems: (1) Anemia Status: Chronic (2) GI bleed Status: Acute (3) Hypoxia Status: Acute (4) SOB (shortness of breath) Status: Acute (5) Upper GI bleed Status: Acute (6) Vomiting Status: Acute (7) Weakness Status: Acute Family History Omit secondary to age Social History Smoking Status: Unknown if Ever Smoked Drug Use: none Marital Status: Housing Status: lives with family Occupation Status: retired Allergies Coded Allergies: Amiodarone (Unverified Allergy, Severe, pulmonary toxicity, 08/28/16) Nortriptyline (Verified Allergy, Unknown, 08/28/16) Aspirin (Verified Adverse Reaction, Intermediate, HX GASTRIC ULCER, ) NSAIDs (Verified Adverse Reaction, Unknown, GI SYMPTOMS, 08/28/16) hx duodinal ulcer Current Medications Home Meds and Scripts Medications Dose Route/Sig Max Daily Dose Days Date Category Dose Instructions A+D First Aid (Skin Protectants, Misc.) 1 Oin Oin 1 Appln TOP TID PRN 09/20/16 Reported APPLY NEEDED TO LOWER EXTREMITY SKIN LESIONS Flonase Allergy Relief (Fluticasone Propionate (Nasal)) 50 Mcg/Act Spr 2 Sprays VINNY QAM 09/20/16 Reported Fleet Enema (Sodium Phosphate/Biphosphate) Angie 1 Ea TN UD PRN 09/20/16 Reported NEEDED EVERY 72 HOURS IF NO RESULTS FROM MPM OR DULCOLAX SUPPOSITORY Milk of Magnesia 400 mg/5Ml (Magnesium Hydroxide) 1 Jacki Jacki 30 Ml PO UD PRN 09/20/16 Reported NEEDED FOR NO BOWEL MOVEMENT FOR 2 DAYS Anbesol (Benzocaine (Dental)) 10 % Gel 1 Appln TOP TID PRN 09/20/16 Reported APPLY DIRECTED TO GUMS Polyethylene Glycol 3350 (Polyethylene Glycol 3350 (Bulk) 1 Pow Pow 6.5 Gm PO QAM 09/20/16 Reported MIX IN 8 OUNCES OF WATER Levothyroxine Sodium 100 Mcg Tab 100 Mcg PO QAM 09/20/16 Reported Nephrocaps (Vitamin B Complex/Vit C/Folic Acid) Cap 1 Cap PO QAM 09/20/16 Reported Effexor Xr (Venlafaxine Hcl) 150 Mg Cap 150 Mg PO QAM 09/20/16 Reported Ferrous Sulfate 325 Mg Tab 325 Mg PO QAM 09/20/16 Reported Benadryl Allergy (Diphenhydramine Hcl) 25 Mg Tab 25 Mg PO Q4H PRN 06/02/16 Reported [Beer] 12 Oz PO Q24H PRN 06/02/16 Reported Vitamin C (Ascorbic Acid) 500 Mg Tab 500 Mg PO QAM 06/02/16 Reported Nitrostat (Nitroglycerin) 0.4 Mg Tab 0.4 Mg UT UD PRN 02/08/[address] ONE TABLET UNDER THE TONGUE EVERY 5 MINUTES FOR UP TO 3 DOSES IF NEEDED FOR CHEST PAIN Vitamin D (Cholecalciferol) 2,000 Unit Tab 2,000 Inter.unit PO QAM 01/07/16 Reported Protonix (Pantoprazole Sodium) 40 Mg Tab 40 Mg PO QPM 01/07/16 Reported Phenadoz (Promethazine HCl) 12.5 Mg Supp 1 Supp TN Q6H PRN 12/01/15 Reported Bisac-Evac (Bisacodyl) 10 Mg Sup 1 Supp TN UD PRN 12/01/15 Reported NEEDED EVERY 48 HOURS IF NO RESULTS FROM MILK OF MAGNESIA Tylenol Supp (Acetaminophen) 650 Mg Sup 1 Supp TN Q4H PRN 12/01/15 Reported MAXIMUM 3GM APAP/24 HOURS Tylenol (Acetaminophen) 325 Mg Tab 650 Mg PO Q4H PRN 12/01/15 Reported MAXIMUM 3GM APAP/24 HOURS Isosorbide Mononitrate ER (Isosorbide Mononitrate) 30 Mg Tabcr 30 Mg PO QAM 12/01/15 Reported Flomax (Tamsulosin Hcl) 0.4 Mg Cap 0.4 Mg PO HS 10/28/15 Reported Rocaltrol Cap (Calcitriol) 0.25 Mcg Cap 0.25 Mcg PO 3XWK 10/28/15 Reported TAKE THIS MEDICATION EVERY WEDNESDAY,WEDNESDAY AND WEDNESDAY Lasix (Furosemide) 20 Mg Tab 20 Mg PO BID 07/13/12 Reported Proscar (Finasteride) 5 Mg Tab 5 Mg PO QAM 01/01/08 Reported Review of Systems Constitutional: No chills, No fever Respiratory: No cough, No shortness of breath Cardiac: No chest pain Abdomen: No constipation, No diarrhea, No nausea, No pain, No vomiting Physical Exam Date Time Temp Pulse Resp B/P Pulse Ox O2 Delivery O2 Flow Rate FiO2 09/21/16 07:42 36.6 65 16 120/56 98 Nasal Cannula 2.0 09/21/16 04:00 99 Nasal Cannula 2.0 09/21/16 03:41 36.5 71 21 134/48 98 Nasal Cannula 2.0 09/21/16 01:20 65 20 97 09/21/16 01:15 70 17 122/58 96 09/21/16 01:00 65 24 128/54 97 09/21/16 00:45 62 18 140/49 99 09/21/16 00:01 99 Nasal Cannula 2.0 09/20/16 23:10 37.1 70 20 112/58 93 Nasal Cannula 2.0 09/20/16 23:00 71 19 112/58 09/20/16 22:24 37.4 73 18 104/55 96 2.0 09/20/16 21:55 36.4 78 18 126/61 98 Room Air 2.0 09/20/16 21:49 Nasal Cannula 09/20/16 21:31 36.5 75 18 132/64 99 09/20/16 21:13 75 18 132/64 99 Nasal Cannula 2.0 09/20/16 20:23 78 18 124/63 94 Room Air 09/20/16 19:11 81 09/20/16 18:41 36.5 81 16 113/70 97 Room Air General Appearance: no apparent distress Eyes: PERRL ENT: hearing grossly normal Neck: supple, no adenopathy Respiratory/Chest: lungs clear, normal breath sounds (patient is not wearing his O2 - he was assisted on putting this back on), no respiratory distress, no accessory muscle use Cardiovascular: regular rate, rhythm, no gallop, no JVD, no murmur Abdomen: normal bowel sounds, non tender, soft, no organomegaly Neurologic/Psych: alert (he is only oriented to self & people), normal mood/ affect Laboratory Results Last 24 Hours Test 09/20/16 18:30 09/20/16 22:22 09/21/16 02:58 09/21/16 09:15 White Blood Count 8.90 K/uL 8.52 K/uL Red Blood Count 2.81 M/uL 2.72 M/uL Hemoglobin 7.9 g/dL 6.7 g/dL 7.7 g/dL 7.9 g/dL Hematocrit 23.5 % 20.4 % 22.6 % 23.7 % Mean Corpuscular Volume 83.6 fL 83.1 fL Mean Corpuscular Hemoglobin 28.1 pg 28.3 pg Mean Corpuscular Hemoglobin Concent 33.6 g/dl 34.1 g/dl Platelet Count 488 K/uL 369 K/uL Mean Platelet Volume 9.1 fL 8.7 fL Neutrophils (%) (Auto) 71.2 % Lymphocytes (%) (Auto) 18.7 % Monocytes (%) (Auto) 6.1 % Eosinophils (%) (Auto) 2.6 % Basophils (%) (Auto) 0.3 % Neutrophils # (Auto) 6.34 K/uL Lymphocytes # (Auto) 1.66 K/uL Monocytes # (Auto) 0.54 K/uL Eosinophils # (Auto) 0.23 K/uL Basophils # (Auto) 0.03 K/uL RDW Standard Deviation 51.5 fL 49.1 fL RDW Coefficient of Variation 16.9 % 16.2 % Immature Granulocyte % (Auto) 1.1 % Immature Granulocyte # (Auto) 0.10 K/uL Anisocytosis PRESENT Spherocytes 1+ Prothrombin Time 10.5 SECONDS Prothromb Time International Ratio 1.0 Activated Partial Thromboplast Time 30.7 SECONDS Partial Thromboplastin Ratio 1.2 Sodium Level 138 mmol/L 141 mmol/L Potassium Level 4.5 mmol/L 4.4 mmol/L Chloride Level 101 mmol/L 104 mmol/L Carbon Dioxide Level 27 mmol/L 26 mmol/L Anion Gap 10.0 mmol/L 11.0 mmol/L Blood Urea Nitrogen 40 mg/dl 42 mg/dl Creatinine 2.00 mg/dl 1.90 mg/dl Estimated GFR () 33.3 35.4 Estimated GFR (Non- 28.7 30.6 BUN/Creatinine Ratio 19.8 21.8 Random Glucose 94 mg/dl 91 mg/dl Calcium Level 8.8 mg/dl 8.2 mg/dl Total Bilirubin 0.2 mg/dl Direct Bilirubin < 0.1 mg/dl Aspartate Amino Transf (AST/SGOT) 14 U/L Alanine Aminotransferase (ALT/SGPT) 18 U/L Alkaline Phosphatase 81 U/L Total Creatine Kinase 40 U/L Creatine Kinase MB 2.6 ng/ml Creatine Kinase MB Ratio 6.5 Troponin I < 0.015 ng/ml Total Protein 7.1 gm/dl Albumin 2.9 gm/dl Neutrophils % (Manual) 69.6 % Lymphocytes % (Manual) 22.6 % Monocytes % (Manual) 2.6 % Eosinophils % (Manual) 1.7 % Basophils % (Manual) 2.6 % Myelocytes % 0.9 % Neutrophils # (Manual) 5.93 K/uL Total Absolute Neutrophils 5.93 K/uL Lymphocytes # (Manual) 1.93 K/uL Total Absolute Lymphocytes 1.93 K/uL Monocytes # (Manual) 0.22 K/uL Eosinophils # (Manual) 0.14 K/uL Basophils # (Manual) 0.22 K/uL Myelocytes # 0.08 K/uL Red Blood Cell Morphology Unremarkable Est Creatinine Clear Calc Drug Dose 22.9 ml/min Magnesium Level 2.1 mg/dl Impression Patient is a 89 year old male with melena and anemia. He has a history of ulcers. Differentials include gastritis, PUD, esophagitis etc Plan NPO EGD today Monitor stools Trend H&H Transfuse as needed. is now at bedside and will provide consent. ATTESTATION: I have performed a history and physical examination of this patient and reviewed the electronic record. Specifically, the patient reports no pain and on physical examination three is no abdominal tenderness. I have discussed the case with ALEXA Palma. The above note reflects my findings, conclusions, and recommendations. Raffy Danielle MD
--- NOTE | 2016-09-21 11:13 | Hospitalist Progress Note ---
Hospitalist Progress Note Date of Service Sep 21, 2016. (Krysten Figueroa ., DARIOC) Subjective Pt evaluation today including: conversation w/ patient, physical exam, chart review, lab review, review of studies, review of inpatient medication list Pain: None PO Intake: NPO Voiding: no voiding problems Patient reports feeling well. He has not had any more bowel movements since admission. He has been kept NPO and states that he is hungry but denies any other complaints. He is urinating without difficulty. The patient denies fevers, chills, sweats, chest pain, palpitations, claudication, cough, wheezing , shortness of breath, nausea, vomiting, abdominal pain, dysuria, hematuria, urinary retention, paralysis, weakness, numbness and tingling. Additional Comments: See HPI for pertinent positives and negatives. All other systems reviewed and negative. (Krysten Figueroa ., NELLIE-C) Objective Vital Signs Date Time Temp Pulse Resp B/P Pulse Ox O2 Delivery O2 Flow Rate FiO2 09/21/16 07:42 36.6 65 16 120/56 98 Nasal Cannula 2.0 09/21/16 04:00 99 Nasal Cannula 2.0 09/21/16 03:41 36.5 71 21 134/48 98 Nasal Cannula 2.0 09/21/16 01:20 65 20 97 09/21/16 01:15 70 17 122/58 96 09/21/16 01:00 65 24 128/54 97 09/21/16 00:45 62 18 140/49 99 09/21/16 00:01 99 Nasal Cannula 2.0 09/20/16 23:10 37.1 70 20 112/58 93 Nasal Cannula 2.0 09/20/16 23:00 71 19 112/58 09/20/16 22:24 37.4 73 18 104/55 96 2.0 09/20/16 21:55 36.4 78 18 126/61 98 Room Air 2.0 09/20/16 21:49 Nasal Cannula 09/20/16 21:31 36.5 75 18 132/64 99 09/20/16 21:13 75 18 132/64 99 Nasal Cannula 2.0 09/20/16 20:23 78 18 124/63 94 Room Air 09/20/16 19:11 81 09/20/16 18:41 36.5 81 16 113/70 97 Room Air (Krysten Figueroa ., PA-C) Physical Exam General Appearance: WD/WN, no apparent distress Eyes: normal inspection, PERRL, EOMI ENT: normal ENT inspection, hearing grossly normal, pharynx normal Neck: supple, no JVD, trachea midline Respiratory/Chest: lungs clear, normal breath sounds, no respiratory distress, + decreased breath sounds Cardiovascular: regular rate, rhythm, no gallop, + systolic murmur Abdomen: normal bowel sounds, non tender, soft Extremities: non-tender, normal inspection, no pedal edema Neurologic/Psychiatric: alert, normal mood/affect, + disoriented Skin: normal color, warm/dry, no rash (Krysten Figueroa ., PA-C) Laboratory Results Last 24 Hours Test 09/20/16 18:30 09/20/16 22:22 09/21/16 02:58 09/21/16 09:15 White Blood Count 8.90 K/uL 8.52 K/uL Red Blood Count 2.81 M/uL 2.72 M/uL Hemoglobin 7.9 g/dL 6.7 g/dL 7.7 g/dL 7.9 g/dL Hematocrit 23.5 % 20.4 % 22.6 % 23.7 % Mean Corpuscular Volume 83.6 fL 83.1 fL Mean Corpuscular Hemoglobin 28.1 pg 28.3 pg Mean Corpuscular Hemoglobin Concent 33.6 g/dl 34.1 g/dl Platelet Count 488 K/uL 369 K/uL Mean Platelet Volume 9.1 fL 8.7 fL Neutrophils (%) (Auto) 71.2 % Lymphocytes (%) (Auto) 18.7 % Monocytes (%) (Auto) 6.1 % Eosinophils (%) (Auto) 2.6 % Basophils (%) (Auto) 0.3 % Neutrophils # (Auto) 6.34 K/uL Lymphocytes # (Auto) 1.66 K/uL Monocytes # (Auto) 0.54 K/uL Eosinophils # (Auto) 0.23 K/uL Basophils # (Auto) 0.03 K/uL RDW Standard Deviation 51.5 fL 49.1 fL RDW Coefficient of Variation 16.9 % 16.2 % Immature Granulocyte % (Auto) 1.1 % Immature Granulocyte # (Auto) 0.10 K/uL Anisocytosis PRESENT Spherocytes 1+ Prothrombin Time 10.5 SECONDS Prothromb Time International Ratio 1.0 Activated Partial Thromboplast Time 30.7 SECONDS Partial Thromboplastin Ratio 1.2 Sodium Level 138 mmol/L 141 mmol/L Potassium Level 4.5 mmol/L 4.4 mmol/L Chloride Level 101 mmol/L 104 mmol/L Carbon Dioxide Level 27 mmol/L 26 mmol/L Anion Gap 10.0 mmol/L 11.0 mmol/L Blood Urea Nitrogen 40 mg/dl 42 mg/dl Creatinine 2.00 mg/dl 1.90 mg/dl Estimated GFR () 33.3 35.4 Estimated GFR (Non- 28.7 30.6 BUN/Creatinine Ratio 19.8 21.8 Random Glucose 94 mg/dl 91 mg/dl Calcium Level 8.8 mg/dl 8.2 mg/dl Total Bilirubin 0.2 mg/dl Direct Bilirubin < 0.1 mg/dl Aspartate Amino Transf (AST/SGOT) 14 U/L Alanine Aminotransferase (ALT/SGPT) 18 U/L Alkaline Phosphatase 81 U/L Total Creatine Kinase 40 U/L Creatine Kinase MB 2.6 ng/ml Creatine Kinase MB Ratio 6.5 Troponin I < 0.015 ng/ml Total Protein 7.1 gm/dl Albumin 2.9 gm/dl Neutrophils % (Manual) 69.6 % Lymphocytes % (Manual) 22.6 % Monocytes % (Manual) 2.6 % Eosinophils % (Manual) 1.7 % Basophils % (Manual) 2.6 % Myelocytes % 0.9 % Neutrophils # (Manual) 5.93 K/uL Total Absolute Neutrophils 5.93 K/uL Lymphocytes # (Manual) 1.93 K/uL Total Absolute Lymphocytes 1.93 K/uL Monocytes # (Manual) 0.22 K/uL Eosinophils # (Manual) 0.14 K/uL Basophils # (Manual) 0.22 K/uL Myelocytes # 0.08 K/uL Red Blood Cell Morphology Unremarkable Est Creatinine Clear Calc Drug Dose 22.9 ml/min Magnesium Level 2.1 mg/dl (Krysten Figueroa, DILIP) Assessment and Plan 89 y/o male with a history of a-fib, anemia, BPH, CKD stage III, CAD, HTN, CHF, HLD, hypothyroidism, and PUD who presents to the ED on 09/20 with dark, tarry stools per [facility] nursing and presumed upper GI bleed. Pt had recently had a blood transfusion ordered by Dr. Morrell at [facility] on 08/28/16 for a total of 2 units PRBCs. Hgb 7.9 upon arrival. Upper GI bleed -Admitted to telemetry -Keep NPO -Check H&H q6h -Given 1 unit PRBC 09/20, Hgb after transfusion 7.7, no more blood given -Repeat Hgb 7.9 -GI consulted, appreciate recs: pt will go for EGD today with Dr. Danielle -Continue IVF NSS at 75 cc/hr -Continue Protonix drip -Zofran 4 mg IV q6h Acute on chronic anemia secondary to acute blood loss -Hgb improving as above, continue to monitor H/o a-fib--currently in sinus rhythm CAD/HTN--stable -Hold Imdur due to NPO status Chronic CHF -Hold Lasix due to NPO status BPH -Hold Proscar and Flomax while NPO Hypothyroidism -PO Synthroid changed to Synthroid 62.5 mcg IV qd Anxiety/depression -Hold Effexor while NPO -Lorazepam 0.5 mg IV q4h prn anxiety Regular beer intake -[facility] records show 12 oz daily, monitor for alcohol withdrawal. Denies any withdrawal symptoms currently DVT prophylaxis -Hold chemical prophylaxis due to bleeding -DANITA velasco and SCDs Code Status -Level I, FULL RESUSCITATION STATUS (Krysten Figueroa ., PAMichaelC) Attending Attestation: Pt seen/examined, chart reviewed, and care plan d/w NELLIE Figueroa. I agree w/ the brown components of her documentation. I saw the patient following his EGD. EGD was NORMAL (esophagus, stomach, and duodenum all nl). He denied any nausea, emesis or abd pain; tolerated clears at dinner w/o difficulty. VSS, no fever gen - NAD neck - no JVD heart - 2/6 systolic murmur, RRR lungs - CTA b/l abd - soft, NT, ND, BS+ ext - no edema labs - most recent Hb 7.9 A/P: 1. acute/chronic anemia; acute component 2nd to blood loss. 2. h/o PUD. 3. 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 Per the staff he had another melena stool this afternoon but h/h, despite IVF, has remained stable following 1 unit of PRBCs. Since EGD was normal perhaps his bleeding is from a small bowel AVM. Will d/c protonix drip; place back on oral PPI. Repeat H/H tonight; if any further drop then Tx 1 additional unit of PRBCs. Allow clears. Fluid rate - drop to 50cc/hr in light of CKD stage 3 and diastolic CHF. Jose MAC MD (Corey Mac MD)
[2016-09-21] MEDS: SODIUM CHLORIDE 0.9% 1000ML 1,000 ML IV SCH (11:59)
[2016-09-21] MEDS ORDERED: PROPOFOL IV EMULSION 10 MG/ML 20 ML VIAL IV ONE (13:00)
[2016-09-21] MEDS ORDERED: LIDOCAINE HCL 2% 2 ML VIAL (20MG/ML) ONE (13:00)
--- NOTE | 2016-09-21 13:37 | GI REPORT ---
Procedure Date: 09/21/2016 1:14 PM Procedure: Upper GI endoscopy Indications: Iron deficiency anemia Medicines: Propofol per Anesthesia Complications: No immediate complications. Estimated blood loss: None. Estimated Blood Loss: Estimated blood loss: none. Procedure: Pre-Anesthesia Assessment: - Prior to the procedure, a History and Physical was performed, and patient medications, allergies and sensitivities were reviewed. The patient's tolerance of previous anesthesia was reviewed. - ASA Grade Assessment: III - A patient with severe systemic disease. After obtaining informed consent, the endoscope was passed under direct vision. Throughout the procedure, the patient's blood pressure, pulse, and oxygen saturations were monitored continuously. The scope was introduced through the mouth, and advanced to the third part of duodenum. The upper GI endoscopy was accomplished with ease. The patient tolerated the procedure well. Findings: The upper third of the esophagus, middle third of the esophagus and lower third of the esophagus were normal. The Z-line was regular. A small hiatus hernia was present. The entire examined stomach was normal. Biopsies were taken with a cold forceps for Helicobacter pylori testing. The examined duodenum was normal. Impression: - Normal upper third of esophagus, middle third of esophagus and lower third of esophagus. - Z-line regular. - Small hiatus hernia. - Normal stomach. Biopsied. - Normal examined duodenum. Recommendation: - [facility] to [facility] care. Raffy Danielle M.D. Raffy Danielle MD 09/21/2016 1:37:36 PM This report has been signed electronically. Note Initiated On: 09/21/2016 1:14 PM I attest to the content of the Intraoperative Record and orders documented therein, exceptions below
[2016-09-21] MEDS ORDERED: ETOMIDATE 2 MG/ML 20 ML VIAL IV ONE (13:45)
--- NOTE | 2016-09-21 14:00 | Anesthesiology Progress Note ---
Anesthesia Post Op Note Date & Time Sep 21, 2016 at 14:01 Vital Signs Pain Intensity: 0 Vital Signs Past 12 Hours Date Time Temp Pulse Resp B/P Pulse Ox O2 Delivery O2 Flow Rate FiO2 09/21/16 13:53 68 18 132/77 100 Nasal Cannula 2 09/21/16 13:42 67 18 121/64 100 Nasal Cannula 09/21/16 12:31 36.8 65 18 120/60 96 Nasal Cannula 2 09/21/16 12:07 36.4 65 16 108/46 97 Nasal Cannula 2.0 09/21/16 12:00 Nasal Cannula 2.0 09/21/16 11:31 36.4 65 16 108/46 97 Nasal Cannula 2.0 09/21/16 08:00 Nasal Cannula 2.0 09/21/16 07:42 36.6 65 16 120/56 98 Nasal Cannula 2.0 09/21/16 04:00 99 Nasal Cannula 2.0 09/21/16 03:41 36.5 71 21 134/48 98 Nasal Cannula 2.0 Notes Mental Status: alert / awake / arousable, participated in evaluation Pt Amnestic to Procedure: Yes Nausea / Vomiting: adequately controlled Pain: adequately controlled Airway Patency, RR, SpO2: stable & adequate BP & HR: stable & adequate Hydration State: stable & adequate Anesthetic Complications: no major complications apparent
[2016-09-21 16:07] LABS: HEMATOCRIT 23.2 % (42-52)
[2016-09-21] MEDS: PANTOprazole SOD 40 MG TAB PO SCH (21:10)
[2016-09-21] MEDS: TAMSULOSIN HCL 0.4 MG CAP PO SCH (21:10)
[2016-09-21 21:59] LABS: HEMATOCRIT 23.9 % (42-52)
[2016-09-22] VITALS (12 sets, daily range): BP systolic 89–146; BP diastolic 52–80; PULSE 61–79; TEMP 36.4–37; O2SAT 92–98
[2016-09-22] MEDS: SODIUM CHLORIDE 0.9% 1000ML 1,000 ML IV SCH (04:37)
[2016-09-22] MEDS: LEVOTHYROXINE 100 MCG TAB PO SCH (06:25)
[2016-09-22 07:03] LABS: BASO % 0.5 %; BASO ABS # 0.04 K/uL (0-0.2); EOS % 2.7 %; HEMATOCRIT 23.3 % (42-52); IG% 0.7 %; LYMPH % 14.3 %; LYMPH ABS # 1.05 K/uL (1.2-3.4); MEAN CELL VOLUME 83.8 fL (80-100); MEAN CORPUSCULAR HEMOGLOBIN 28.1 pg (25-34); MEAN CORPUSCULAR HGB CONC 33.5 g/dl (32-36); MEAN PLATELET VOLUME 8.6 fL (7.4-10.4); MONO % 7.7 %; NEUT % 74.1 %; PLATELET COUNT 367 K/uL (130-400); RED BLOOD COUNT 2.78 M/uL (4.7-6.1); WHITE BLOOD COUNT 7.36 K/uL (4.8-10.8)
[2016-09-22 07:35] LABS: CALCIUM 8.5 mg/dl (8.5-10.1); POTASSIUM 4.1 mmol/L (3.5-5.1)
[2016-09-22 07:41] LABS: COMPLETE YES
[2016-09-22 07:52] LABS: BUN/CREATININE RATIO 16.1 (10-20); CREATININE 1.6 mg/dl (0.60-1.40)
[2016-09-22] MEDS: FINASTERIDE 5 MG TAB PO SCH (08:07)
[2016-09-22] MEDS: FLUTICASONE PROPIONATE NA SPR 16 GM BTL NAE SCH ×2 (08:07→09:00)
[2016-09-22] MEDS: VENLAFAXINE HCL XR 150 MG CAPXR PO SCH (08:07)
[2016-09-22 15:34] LABS: HEMATOCRIT 28.1 % (42-52)
--- NOTE | 2016-09-22 16:53 | Gastroenterology Progress Note ---
Progress Note Date of Service: Sep 22, 2016 Subjective Pt evaluation today including: conversation w/ patient, conversation w/ family , physical exam, chart review, lab review 89yo being followed for anemia and melena. EGD was unrevealing yesterday for any source of bleed. Pt has hx of ulcers in past, none currently. No melena overnight. Pt remains confused. at bedside. Discussed anemia work up process. hgb 7.7 up to 9.6 after 1u PRBC. No new c/o from patient today. Review of Systems Constitutional: No fever Eyes: No problem reported ENT: + hearing loss Respiratory: No cough Cardiac: No chest pain Abdomen: No nausea, No pain, No vomiting (no melena reported) Musculoskeletal: No problem reported Neuro: + see HPI (remains confused) Psych: No problem reported Heme: + see HPI Skin: No rash Medications Current Inpatient Medications Medications (Trade) Dose Ordered Sig/Reina Route Start Time Stop Time Status Last Admin Dose Admin Ondansetron HCl (Zofran Inj) 4 mg Q6H PRN IV 09/20/16 21:15 10/20/16 21:14 Morphine Sulfate (MoRPHine SULFATE INJ) 2 mg Q2H PRN IV 09/20/16 21:15 10/04/16 21:14 Pantoprazole Sodium (Protonix Tab) 40 mg HS PO 09/21/16 21:00 10/21/16 20:59 09/21/16 21:10 40 MG Finasteride (Proscar Tab) 5 mg QAM PO 09/22/16 09:00 10/22/16 08:59 09/22/16 08:07 5 MG Fluticasone Propionate (Flonase Nasal [place]) 2 sprays QAM VINNY 09/22/16 09:00 10/22/16 08:59 09/22/16 09:00 2 SPRAYS Levothyroxine Sodium (Synthroid Tab) 100 mcg DAILYBB PO 09/22/16 06:00 10/22/16 05:59 09/22/16 06:25 100 MCG Tamsulosin HCl (Flomax Cap) 0.4 mg HS PO 09/21/16 21:00 10/21/16 20:59 09/21/16 21:10 0.4 MG Venlafaxine HCl (effeXOR EXTENDED REL CAP) 150 mg QAM PO 09/22/16 09:00 10/22/16 08:59 09/22/16 08:07 150 MG Objective Vital Signs Date Time Temp Pulse Resp B/P Pulse Ox O2 Delivery O2 Flow Rate FiO2 09/22/16 16:00 36.6 66 18 131/63 98 09/22/16 16:00 Nasal Cannula 2.0 09/22/16 12:00 Nasal Cannula 2.0 09/22/16 11:52 36.8 61 18 146/60 98 09/22/16 11:23 36.6 64 16 114/62 94 09/22/16 10:30 36.7 68 16 117/55 94 09/22/16 10:05 36.4 74 16 114/59 97 09/22/16 09:56 36.6 67 16 105/52 95 09/22/16 09:50 36.7 70 20 91/80 94 09/22/16 08:07 37.0 63 16 128/63 96 09/22/16 07:30 Nasal Cannula 2.0 09/22/16 04:00 Nasal Cannula 2.0 09/22/16 01:00 124/71 09/22/16 00:30 36.5 65 19 89/57 93 Nasal Cannula 2.0 09/21/16 23:59 Nasal Cannula 2.0 09/21/16 20:00 95 Room Air 09/21/16 19:46 36.9 88 18 126/81 95 Physical Exam General Appearance: no apparent distress, + thin Eyes: PERRL ENT: + pertinent finding (hard of hearing) Neck: supple Cardiovascular: regular rate, rhythm Abdomen: normal bowel sounds, non tender, soft Extremities: no pedal edema Neurologic/Psych: + pertinent finding (confused) Laboratory Results Last 24 Hours Test 09/21/16 21:42 09/22/16 06:56 09/22/16 08:51 09/22/16 15:28 Hemoglobin 8.0 g/dL 7.8 g/dL 7.7 g/dL 9.6 g/dL Hematocrit 23.9 % 23.3 % 23.0 % 28.1 % White Blood Count 7.36 K/uL Red Blood Count 2.78 M/uL Mean Corpuscular Volume 83.8 fL Mean Corpuscular Hemoglobin 28.1 pg Mean Corpuscular Hemoglobin Concent 33.5 g/dl Platelet Count 367 K/uL Mean Platelet Volume 8.6 fL Neutrophils (%) (Auto) 74.1 % Lymphocytes (%) (Auto) 14.3 % Monocytes (%) (Auto) 7.7 % Eosinophils (%) (Auto) 2.7 % Basophils (%) (Auto) 0.5 % Neutrophils # (Auto) 5.45 K/uL Lymphocytes # (Auto) 1.05 K/uL Monocytes # (Auto) 0.57 K/uL Eosinophils # (Auto) 0.20 K/uL Basophils # (Auto) 0.04 K/uL RDW Standard Deviation 50.9 fL RDW Coefficient of Variation 16.4 % Immature Granulocyte % (Auto) 0.7 % Immature Granulocyte # (Auto) 0.05 K/uL Red Blood Cell Morphology Unremarkable Sodium Level 144 mmol/L Potassium Level 4.1 mmol/L Chloride Level 112 mmol/L Carbon Dioxide Level 24 mmol/L Anion Gap 8.0 mmol/L Blood Urea Nitrogen 26 mg/dl Creatinine 1.60 mg/dl Est Creatinine Clear Calc Drug Dose 27.2 ml/min Estimated GFR () 43.6 Estimated GFR (Non- 37.6 BUN/Creatinine Ratio 16.1 Random Glucose 95 mg/dl Calcium Level 8.5 mg/dl Assessment and Plan anemia - hgb improved post transfusion. Continue to follow, transfuse PRN. Discussed risks/benefits of colonoscopy with - would not recommend colonoscopy given age and comorbidities, agrees hx PUD - continue PPI. No active disease on EGD this admission. no new GI recommendations at this time. advanced diet as tolerated Call with questions. ATTESTATION: I have performed a history and physical examination of this patient and reviewed the electronic record. Specifically, on physical examination he remains comfortable without signs of active bleeding. I have discussed the case with Jodi Barnett PA-C. The above note reflects my findings, conclusions, and recommendations. Raffy Danielle MD
--- NOTE | 2016-09-22 20:05 | Progress Note ---
Progress Note 09/22/161999 Attempted to call at phone # listed in chart - rang and rang, no answer. Attempted to call son - adithya - at both #'s listed in chart. Home # led to answering machine; work # was disconnected. Jose TOWNSEND MD
[2016-09-22] MEDS: PANTOprazole SOD 40 MG TAB PO SCH (21:04)
[2016-09-22] MEDS: TAMSULOSIN HCL 0.4 MG CAP PO SCH (21:04)
[2016-09-23] VITALS (10 sets, daily range): BP systolic 106–136; BP diastolic 58–74; PULSE 63–91; TEMP 36.6–37.1; O2SAT 86–97
[2016-09-23 06:20] LABS: BASO % 0.3 %; BASO ABS # 0.02 K/uL (0-0.2); EOS % 2.3 %; HEMATOCRIT 25.6 % (42-52); IG% 0.4 %; MEAN CELL VOLUME 83.1 fL (80-100); MEAN CORPUSCULAR HEMOGLOBIN 28.6 pg (25-34); MEAN CORPUSCULAR HGB CONC 34.4 g/dl (32-36); MEAN PLATELET VOLUME 8.9 fL (7.4-10.4); MONO % 8.6 %; NEUT % 80.4 %; PLATELET COUNT 347 K/uL (130-400); RED BLOOD COUNT 3.08 M/uL (4.7-6.1); WHITE BLOOD COUNT 7.53 K/uL (4.8-10.8)
--- NOTE | 2016-09-23 06:38 | Progress Note ---
Subjective Date of Service: Sep 22, 2016. Subjective Pt evaluation today including: conversation w/ patient, physical exam, chart review, lab review, review of inpatient medication list Pain: denies h/a, cp, abd pain PO Intake: tolerating clears Voiding: incontinence sundowning and confusion last pm this am he is also mildly confused but about baseline to me he states "I'm doing terrible" but when asked about what is bothering him he cannot tell me tele stable overnight; NSR had melena stool per staff Problem List Medical Problems: (1) Anemia Status: Chronic (2) GI bleed Status: Acute (3) Hypoxia Status: Acute (4) SOB (shortness of breath) Status: Acute (5) Upper GI bleed Status: Acute (6) Vomiting Status: Acute (7) Weakness Status: Acute Review of Systems unable to obtain ROS due to dementia/confusion Objective Vital Signs Date Time Temp Pulse Resp B/P Pulse Ox O2 Delivery O2 Flow Rate FiO2 09/22/16 16:00 36.6 66 18 131/63 98 09/22/16 16:00 Nasal Cannula 2.0 09/22/16 12:00 Nasal Cannula 2.0 09/22/16 11:52 36.8 61 18 146/60 98 09/22/16 11:23 36.6 64 16 114/62 94 09/22/16 10:30 36.7 68 16 117/55 94 09/22/16 10:05 36.4 74 16 114/59 97 09/22/16 09:56 36.6 67 16 105/52 95 09/22/16 09:50 36.7 70 20 91/80 94 09/22/16 08:07 37.0 63 16 128/63 96 09/22/16 07:30 Nasal Cannula 2.0 09/22/16 04:00 Nasal Cannula 2.0 09/22/16 01:00 124/71 09/22/16 00:30 36.5 65 19 89/57 93 Nasal Cannula 2.0 09/21/16 23:59 Nasal Cannula 2.0 Physical Exam General Appearance: no apparent distress ENT: pharynx normal Neck: no JVD Respiratory/Chest: lungs clear, no respiratory distress, no accessory muscle use Cardiovascular: + pertinent finding (irregular, s1, s2, 2/6 ANMOL LSB) Abdomen: normal bowel sounds, non tender, soft, no organomegaly Extremities: no pedal edema Neurologic/Psychiatric: alert, + disoriented Laboratory Results Last 24 Hours Test 09/21/16 21:42 09/22/16 06:56 09/22/16 08:51 09/22/16 15:28 Hemoglobin 8.0 g/dL 7.8 g/dL 7.7 g/dL 9.6 g/dL Hematocrit 23.9 % 23.3 % 23.0 % 28.1 % White Blood Count 7.36 K/uL Red Blood Count 2.78 M/uL Mean Corpuscular Volume 83.8 fL Mean Corpuscular Hemoglobin 28.1 pg Mean Corpuscular Hemoglobin Concent 33.5 g/dl Platelet Count 367 K/uL Mean Platelet Volume 8.6 fL Neutrophils (%) (Auto) 74.1 % Lymphocytes (%) (Auto) 14.3 % Monocytes (%) (Auto) 7.7 % Eosinophils (%) (Auto) 2.7 % Basophils (%) (Auto) 0.5 % Neutrophils # (Auto) 5.45 K/uL Lymphocytes # (Auto) 1.05 K/uL Monocytes # (Auto) 0.57 K/uL Eosinophils # (Auto) 0.20 K/uL Basophils # (Auto) 0.04 K/uL RDW Standard Deviation 50.9 fL RDW Coefficient of Variation 16.4 % Immature Granulocyte % (Auto) 0.7 % Immature Granulocyte # (Auto) 0.05 K/uL Red Blood Cell Morphology Unremarkable Sodium Level 144 mmol/L Potassium Level 4.1 mmol/L Chloride Level 112 mmol/L Carbon Dioxide Level 24 mmol/L Anion Gap 8.0 mmol/L Blood Urea Nitrogen 26 mg/dl Creatinine 1.60 mg/dl Est Creatinine Clear Calc Drug Dose 27.2 ml/min Estimated GFR () 43.6 Estimated GFR (Non- 37.6 BUN/Creatinine Ratio 16.1 Random Glucose 95 mg/dl Calcium Level 8.5 mg/dl Assessment and Plan 89yo male with: 1. acute/chronic anemia; acute component 2nd to GI blood loss - exact etiology uncertain as EGD failed to demonstrate source of bleeding. In light of extensive cardiac history and Hb<8 will Tx 1 additional unit of PRBCs today; repeat H/H tonight and then again in am. GI to defer on colonoscopy at this time. Advance diet 2. h/o PUD - on PPI at HS. 3. 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 no good option to fix such if this was the cause. 4. h/o a. fib - NOT on anticoagulation due to GI bleeding and chronic anemia. 5. acute kidney injury - resolved. d/c fluids. 2nd to #1. 6. CKD stage 3 - creatinine of 1.6 today is baseline for him. 7. hypothyroidism - TSH 08/2016 was normal; continue synthroid. 8. BPH - continue finasteride and flomax. 9. CAD - no ischemic sx's at this time. 10. DVT proph - SCDs; chemical means contraindicated. 11. FEN - advance diet, stop fluids, BMP am. 12. encephalopathy in setting of dementia - supportive care; likely hospital psychosis; no metabolic causes/infectious causes seen. PT, OT evals to help with disposition attempted to call all contact #'s in chart w/o success today Continued [facility] stay due to: inadequate po fluid intake, ambulation difficulties , multiple IV medications needed Discharge planning: uncertain
[2016-09-23] MEDS: LEVOTHYROXINE 100 MCG TAB PO SCH (06:39)
[2016-09-23 06:48] LABS: BUN/CREATININE RATIO 14.3 (10-20); CALCIUM 8.2 mg/dl (8.5-10.1); CREATININE 1.5 mg/dl (0.60-1.40); POTASSIUM 4.1 mmol/L (3.5-5.1)
[2016-09-23 06:54] LABS: ANISOCYTOSIS PRESENT; COMPLETE YES
[2016-09-23] MEDS: FINASTERIDE 5 MG TAB PO SCH (08:10)
[2016-09-23] MEDS: FLUTICASONE PROPIONATE NA SPR 16 GM BTL NAE SCH (08:10)
[2016-09-23] MEDS: VENLAFAXINE HCL XR 150 MG CAPXR PO SCH (08:10)
--- NOTE | 2016-09-23 13:15 | Hospitalist Progress Note ---
Hospitalist Progress Note Date of Service Sep 23, 2016. (Krysten Figueroa .DILIP) Subjective Pt evaluation today including: conversation w/ patient, physical exam, chart review, lab review, review of inpatient medication list Pain: None PO Intake: tolerating full liquid diet Voiding: incontinence The patient denies any complaints and reports feeling well. He is confused and disoriented, however, and no family currently at bedside. The patient denies fevers, chills, sweats, chest pain, palpitations, claudication, cough, wheezing , shortness of breath, nausea, vomiting, abdominal pain, dysuria, hematuria, urinary retention, paralysis, weakness, numbness and tingling. Additional Comments: See HPI for pertinent positives and negatives. All other systems reviewed and negative. (Krysten Figueroa PA-C) Objective Vital Signs Date Time Temp Pulse Resp B/P Pulse Ox O2 Delivery O2 Flow Rate FiO2 09/23/16 12:00 Room Air 09/23/16 10:47 36.8 74 20 128/67 92 Room Air 09/23/16 08:00 36.9 63 18 114/67 95 Room Air 09/23/16 08:00 95 Room Air 09/23/16 04:00 36.7 68 24 106/66 95 Nasal Cannula 2.0 09/23/16 04:00 95 Room Air 09/23/16 00:30 96 Room Air 09/23/16 00:15 96 Nasal Cannula 2.0 09/23/16 00:00 36.7 70 20 113/58 96 Nasal Cannula 2.0 09/22/16 20:30 92 Room Air 09/22/16 20:06 36.8 79 18 112/65 96 09/22/16 16:00 36.6 66 18 131/63 98 09/22/16 16:00 Nasal Cannula 2.0 (Krysten Figueroa PA-C) Physical Exam General Appearance: WD/WN, no apparent distress Eyes: normal inspection, PERRL, EOMI ENT: normal ENT inspection, hearing grossly normal, pharynx normal Neck: supple, no JVD, trachea midline Respiratory/Chest: lungs clear, normal breath sounds, no respiratory distress, + decreased breath sounds Cardiovascular: regular rate, rhythm, no gallop, + systolic murmur Abdomen: normal bowel sounds, soft, + tenderness (reports mild diffuse tenderness, no guarding) Extremities: non-tender, normal inspection, no pedal edema Neurologic/Psychiatric: alert, normal mood/affect, + disoriented (oriented to person only) Skin: normal color, warm/dry, no rash (Krysten Figueroa ., DILIP) Laboratory Results Last 24 Hours Test 09/22/16 15:28 09/23/16 05:51 09/23/16 06:36 09/23/16 11:39 Hemoglobin 9.6 g/dL 8.8 g/dL Hematocrit 28.1 % 25.6 % White Blood Count 7.53 K/uL Red Blood Count 3.08 M/uL Mean Corpuscular Volume 83.1 fL Mean Corpuscular Hemoglobin 28.6 pg Mean Corpuscular Hemoglobin Concent 34.4 g/dl Platelet Count 347 K/uL Mean Platelet Volume 8.9 fL Neutrophils (%) (Auto) 80.4 % Lymphocytes (%) (Auto) 8.0 % Monocytes (%) (Auto) 8.6 % Eosinophils (%) (Auto) 2.3 % Basophils (%) (Auto) 0.3 % Neutrophils # (Auto) 6.06 K/uL Lymphocytes # (Auto) 0.60 K/uL Monocytes # (Auto) 0.65 K/uL Eosinophils # (Auto) 0.17 K/uL Basophils # (Auto) 0.02 K/uL RDW Standard Deviation 48.9 fL RDW Coefficient of Variation 16.2 % Immature Granulocyte % (Auto) 0.4 % Immature Granulocyte # (Auto) 0.03 K/uL Anisocytosis PRESENT Sodium Level 142 mmol/L Potassium Level 4.1 mmol/L Chloride Level 110 mmol/L Carbon Dioxide Level 22 mmol/L Anion Gap 10.0 mmol/L Blood Urea Nitrogen 21 mg/dl Creatinine 1.50 mg/dl Est Creatinine Clear Calc Drug Dose 29.0 ml/min Estimated GFR () 47.2 Estimated GFR (Non- 40.7 BUN/Creatinine Ratio 14.3 Random Glucose 92 mg/dl Calcium Level 8.2 mg/dl Bedside Glucose 96 mg/dl 102 mg/dl (Krysten Figueroa .DARIOC) Assessment and Plan 89 y/o male with a history of a-fib, anemia, BPH, CKD stage III, CAD, HTN, CHF, HLD, hypothyroidism, and PUD who presents to the ED on 09/20 with dark, tarry stools per [facility] nursing and presumed upper GI bleed. Pt had recently had a blood transfusion ordered by Dr. Morrell at [facility] on 08/28/16 for a total of 2 units PRBCs. Hgb 7.9 upon arrival. Upper GI bleed -Admitted to telemetry -Keep NPO -Check H&H q6h -Given 1 unit PRBC 09/20, Hgb after transfusion 7.7 -1 unit given PRBC given 09/22, Hgb 9.6 after tranfusion -Hgb 8.8 on 09/23, will continue to trend q6h -GI consulted, appreciate recs: EGD showed hiatal hernia, otherwise normal -D/C IVF -Continue Protonix 40 mg PO qd -Zofran 4 mg IV q6h -Tolerating full liquids, advance to regular diet as tolerated Acute on chronic anemia secondary to acute blood loss--stable -Hgb did drop but stable, continue to monitor H/o a-fib--currently in sinus rhythm, however monitor shows intermittent a-fib CAD/HTN--stable -Hold Imdur, BP has been low normal, will continue to monitor and can resume if remains stable Chronic CHF -Hold Lasix BPH -Continue Proscar 5 mg PO qd and Flomax 0.4 mg PO qd Hypothyroidism -Continue Synthroid 100 mcg PO qd Anxiety/depression -Continue Effexor 150 mg PO qd Regular beer intake -[facility] records show 12 oz daily, monitor for alcohol withdrawal. Denies any withdrawal symptoms currently DVT prophylaxis -Hold chemical prophylaxis due to bleeding -DANITA velasco and SCDs Code Status -Level I, FULL RESUSCITATION STATUS (Krysten Figueroa ., PA-C) Attending Attestation: Pt seen/examined, chart reviewed, care plan d/w NELLIE Figueroa. I agree w/ the brown components of her documentation. No events overnight tele with a. fib, most rates <100. occasional bursts over 100. no overt GI bleeding per staff. VSS, no fever gen - elderly thin male in NAD, pleasantly confused neck - no JVD mouth - MMM heart - irregular, s1, s2 lungs - rales, left base only abd - minimal distension, NT, BS+ ext - no edema Hb 8.8 Cr 1.5 A/P: 1. acute/chronic anemia; acute component 2nd to GI blood loss - exact etiology uncertain as EGD failed to demonstrate source of bleeding. GI to defer on colonoscopy at this time. H/H stable over last 24 hours. Advance diet. 2. h/o PUD - on PPI at HS. 3. 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 no good option to fix such if this was the cause. 4. h/o a. fib - NOT on anticoagulation due to GI bleeding and chronic anemia. 5. acute kidney injury - resolved. 6. CKD stage 3 - creatinine of 1.5 today is baseline for him. 7. hypothyroidism - TSH 08/2016 was normal; continue synthroid. 8. BPH - continue finasteride and flomax. 9. CAD - no ischemic sx's at this time. 10. DVT proph - SCDs; chemical means contraindicated. 11. encephalopathy in setting of dementia - supportive care; likely hospital psychosis; no metabolic causes/infectious causes seen. 12. cough - repeated his cxr - this showed LLL infiltrate. I am not convinced that this represents pneumonia. Will monitor very carefully and have low threshold for antibiotics if indicated , however. left message for his at phone # [phone] PT, OT both recommending SNF placement Corey Mac MD (Corey Mac MD)
[2016-09-23 13:19] LABS: HEMATOCRIT 25.5 % (42-52)
--- NOTE | 2016-09-23 16:01 | DIAGNOSTIC IMAGING REPORT ---
CHEST ONE VIEW PORTABLE CLINICAL HISTORY: left basilar rales, eval for developing pneumonia dyspnea COMPARISON STUDY: 09/20/2016 FINDINGS: Small bibasilar compressive atelectasis. Small parenchymal infiltrate left base. Upper lungs are clear. IMPRESSION: Small parenchymal infiltrate left base laterally. Electronically signed by: Anson Villarreal M.D. 09/23/2016 4:00 PM Dictated Date/Time: 09/23/2016 3:59 PM
[2016-09-23 18:56] LABS: HEMATOCRIT 25.7 % (42-52)
[2016-09-23] MEDS: TAMSULOSIN HCL 0.4 MG CAP PO SCH (21:06)
[2016-09-23] MEDS: PANTOprazole SOD 40 MG TAB PO SCH (21:06)
[2016-09-24 00:01] VITALS: O2SAT 97
[2016-09-24] MEDS: LEVOTHYROXINE 100 MCG TAB PO SCH (06:00)
[2016-09-24 07:56] VITALS: BP 109/65; PULSE 75; TEMP 36.9; O2SAT 92
[2016-09-24 08:00] VITALS: O2SAT 97
--- NOTE | 2016-09-24 08:31 | DIAGNOSTIC IMAGING REPORT ---
CHEST ONE VIEW PORTABLE HISTORY: Increased oxygen requirement. Short of breath. COMPARISON: Chest 09/23/2016. FINDINGS: There is a left shoulder prosthesis. The heart remains mildly enlarged. There are low lung volumes. No pneumothorax. No pleural effusions. Old, healed right rib fractures. Mild diffuse interstitial thickening which is likely chronic. Hazy appearance to the periphery of the left midlung zone is again noted. IMPRESSION: No change in the peripheral hazy opacity within the left midlung zone. Stable mild cardiomegaly. Electronically signed by: Brennen Negrete M.D. 09/24/2016 8:30 AM Dictated Date/Time: 09/24/2016 8:16 AM
[2016-09-24] MEDS: VENLAFAXINE HCL XR 150 MG CAPXR PO SCH (09:00)
[2016-09-24] MEDS: FLUTICASONE PROPIONATE NA SPR 16 GM BTL NAE SCH (09:00)
[2016-09-24] MEDS: FINASTERIDE 5 MG TAB PO SCH (09:00)
[2016-09-24] MEDS ORDERED: RISPERIDONE 0.5 MG TAB PO ONE (11:15)
[2016-09-24 11:36] VITALS: BP 122/76; PULSE 76; O2SAT 94
[2016-09-24 11:46] LABS: HEMATOCRIT 28.1 % (42-52); MEAN CELL VOLUME 85.7 fL (80-100); MEAN CORPUSCULAR HEMOGLOBIN 28.7 pg (25-34); MEAN CORPUSCULAR HGB CONC 33.5 g/dl (32-36); MEAN PLATELET VOLUME 9.2 fL (7.4-10.4); PLATELET COUNT 370 K/uL (130-400); RED BLOOD COUNT 3.28 M/uL (4.7-6.1); WHITE BLOOD COUNT 5.97 K/uL (4.8-10.8)
[2016-09-24 12:11] LABS: BUN/CREATININE RATIO 11.7 (10-20); CALCIUM 8.7 mg/dl (8.5-10.1); CREATININE 1.5 mg/dl (0.60-1.40); POTASSIUM 4.1 mmol/L (3.5-5.1)
--- NOTE | 2016-09-24 12:42 | Hospitalist Progress Note ---
Hospitalist Progress Note Date of Service Sep 24, 2016. (Krysten Figueroa ., PA-C) Subjective Pt evaluation today including: conversation w/ patient, physical exam, chart review, lab review, review of studies, review of inpatient medication list PO Intake: Refusing breakfast this morning Voiding: incontinence Patient became combative overnight, swinging, kicking and biting at staff. Per nursing, he is either combative or sleeping. Nursing has held his morning oral medications due to altered mental status. When I first came to examine him, he was very combative with nurses who were trying to clean him up and was refusing breakfast. A short time later, he had calmed down but was very lethargic. He denied any complaints, but ability to obtain ROS was limited by patient's lethargy and uncooperativeness. Any ROS obtained may be unreliable. The patient denies fevers, chills, sweats, chest pain, palpitations, claudication, cough, wheezing, shortness of breath, nausea, vomiting, abdominal pain, dysuria , hematuria, urinary retention, paralysis, weakness, numbness and tingling. Additional Comments: See HPI for pertinent positives and negatives. All other systems reviewed and negative. Likely unreliable secondary to altered mental status. (Krysten Figueroa ., PA-C) Objective Vital Signs Date Time Temp Pulse Resp B/P Pulse Ox O2 Delivery O2 Flow Rate FiO2 09/24/16 11:36 76 16 122/76 94 Nasal Cannula 2.0 09/24/16 08:00 97 Room Air 09/24/16 07:56 36.9 75 18 109/65 92 Room Air 09/24/16 00:01 97 Nasal Cannula 2.0 09/23/16 23:05 36.6 71 16 126/73 97 Nasal Cannula 2.0 09/23/16 20:00 Nasal Cannula 2.0 09/23/16 18:50 37.0 91 18 136/74 94 Nasal Cannula 2.0 09/23/16 16:00 86 Room Air 09/23/16 15:15 37.1 79 22 112/67 86 Room Air (Krysten Figueroa ., PA-C) Physical Exam General Appearance: WD/WN, no apparent distress, + pertinent finding ( lethargic during examination, uncooperative) Eyes: normal inspection, PERRL, sclerae normal ENT: normal ENT inspection, hearing grossly normal, + pertinent finding ( uncooperative, did not examine pharnyx) Neck: supple, no JVD, trachea midline Respiratory/Chest: lungs clear, normal breath sounds, no respiratory distress, + decreased breath sounds Cardiovascular: no gallop, + systolic murmur, + irregularly irregular Abdomen: normal bowel sounds, non tender, soft Extremities: non-tender, normal inspection, no pedal edema Neurologic/Psychiatric: + disoriented, + pertinent finding (drowsy, uncooperative, disoriented) Skin: normal color, warm/dry, no rash (Krysten Figueroa ., NELLIE-C) Laboratory Results Last 24 Hours Test 09/23/16 13:10 09/23/16 18:44 09/24/16 06:45 09/24/16 11:18 Hemoglobin 8.8 g/dL 8.7 g/dL 9.4 g/dL Hematocrit 25.5 % 25.7 % 28.1 % Bedside Glucose 101 mg/dl White Blood Count 5.97 K/uL Red Blood Count 3.28 M/uL Mean Corpuscular Volume 85.7 fL Mean Corpuscular Hemoglobin 28.7 pg Mean Corpuscular Hemoglobin Concent 33.5 g/dl RDW Standard Deviation 50.3 fL RDW Coefficient of Variation 16.2 % Platelet Count 370 K/uL Mean Platelet Volume 9.2 fL Sodium Level 141 mmol/L Potassium Level 4.1 mmol/L Chloride Level 108 mmol/L Carbon Dioxide Level 24 mmol/L Anion Gap 9.0 mmol/L Blood Urea Nitrogen 18 mg/dl Creatinine 1.50 mg/dl Est Creatinine Clear Calc Drug Dose 29.0 ml/min Estimated GFR () 47.2 Estimated GFR (Non- 40.7 BUN/Creatinine Ratio 11.7 Random Glucose 94 mg/dl Calcium Level 8.7 mg/dl (Krysten Figueroa, NELLIE-C) Diagnostic Results Reviewed the following studies and agree with interpretation as follows: Patient Name: ARNALDO DE LA ROSA Unit Number: [id number] Dictated: 09/24/16815 Transcribed: 09/24/16815 KOBI Printed Date/Time: [~ rep prt dt]/[~ rep prt tm] [~ rep ct labl] - [~ rep ct ivnm] [facility] [place] [address] Dictated: 09/24/16815 Transcribed: 09/24/16815 KOBI Printed Date/Time: [~ rep prt dt]/[~ rep prt tm] [~ rep ct labl] - [~ rep ct ivnm] Patient: ARNALDO DE LA ROSA Address1: [address] [facility] Rec: [id number] Address2: [address] Acct ID: [id number] [facility] Zip: [place] [address] Date: 1925 Sex: M Room/Bed: S230-2 Ref Phy: Constantine Bautista SC: C.2T Att Phy: Corey Mac MD Report #: [id number] [place] Phy: Constantine Bautista Test: CXR1P Admit Phy: Cristo Conner M.D. Spot Remover: YASMIN Interpreting Phy: Brennen Negrete MD Diagnosis: PEPTIC ULCER DISEASE, UPPER GI BLEED Ordering Phy: Krysten Figueroa PA-C Service Date: 09/24/16 Admit Date: 09/20/1701/12/17 MNE: [id number] CONF: DICTATED BY: Brennen Negrete M.D.]] CC: Krysten Figueroa .DILIP [place], Jonathan R., MD Endcc: [~ rep ct add3]] CHEST ONE VIEW PORTABLE HISTORY: Increased oxygen requirement. Short of breath. COMPARISON: Chest 09/23/2016. FINDINGS: There is a left shoulder prosthesis. The heart remains mildly enlarged. There are low lung volumes. No pneumothorax. No pleural effusions. Old, healed right rib fractures. Mild diffuse interstitial thickening which is likely chronic. Hazy appearance to the periphery of the left midlung zone is again noted. IMPRESSION: No change in the peripheral hazy opacity within the left midlung zone. Stable mild cardiomegaly. Electronically signed by: Brennen Negrete M.D. 09/24/2016 8:30 AM Dictated Date/Time: 09/24/2016 8:16 AM The status of this report is Signed. Draft = Not yet reviewed or approved by Radiologist. Signed = Reviewed and approved by Radiologist. <AttendingPhy>Corey Mac MD</AttendingPhy> <FamilyPhy>[facility]</ FamilyPhy> <PrimaryPhy>[facility]</PrimaryPhy> <UnitNumber>[id number]</ UnitNumber> <VisitNumber>[id number]</VisitNumber> <PatientName>ARNALDO DE LA ROSA< /PatientName> <DateOfBirth>1925</DateOfBirth> <Location>C.2T</Location> < ServiceDate>09/20/16</ServiceDate> <MNE>ESINDI</MNE> <OrderingPhy>Krysten Figueroa PA-C</OrderingPhy> <OrderingPhyMNE>f rep ord dr sandra</OrderingPhyMNE> < DictatingPhyMNE>f rep dict dr sandra</DictatingPhyMNE> <CCListMNE>f rep ct mne</ CCListMNE> <AdmittingPhyMNE>f pt admit dr sandra</AdmittingPhyMNE> <AttendingPhyMNE >f pt attend dr sandra</AttendingPhyMNE> <ConsultingPhyMNE>f pt consult dr sandra</ConsultingPhyMNE> <FamilyPhyMNE>f pt fam dr sandra</FamilyPhyMNE> <OtherPhyMNE>f pt other dr sandra</OtherPhyMNE> < PrimaryPhyMNE>f pt prim care dr sandra</PrimaryPhyMNE> <ReferringPhyMNE>f pt referring dr sandra</ReferringPhyMNE> (Krysten Figueroa .DILIP) Assessment and Plan 89 y/o male with a history of a-fib, anemia, BPH, CKD stage III, CAD, HTN, CHF, HLD, hypothyroidism, and PUD who presents to the ED on 09/20 with dark, tarry stools per [facility] nursing and presumed upper GI bleed. Pt had recently had a blood transfusion ordered by Dr. Morrell at [facility] on 08/28/16 for a total of 2 units PRBCs. Hgb 7.9 upon arrival. Upper GI bleed -Admitted to telemetry. Transfer to med/surg as medically stable. Mental status may actually improve on medical floor -Keep NPO -Check H&H q6h -Given 1 unit PRBC 09/20, Hgb after transfusion 7.7 -1 unit given PRBC given 09/22, Hgb 9.6 after tranfusion -Hgb 8.8 on 09/23 -GI consulted, appreciate recs: EGD showed hiatal hernia, otherwise normal -D/C IVF -Continue Protonix 40 mg PO qd -Zofran 4 mg IV q6h -Tolerating full liquids, advance to regular diet as tolerated Acute on chronic anemia secondary to acute blood loss--stable -Hgb has remained stable for over 24 hours, last Hgb 09/24 was 9.4 Cough, increased O2 requirement--pt does not use supplemental O2 at baseline, still requiring 2L NC now -CXR 09/23 showed small parenchymal infiltrate left base -Repeat CXR 09/24 shows no significant change, left base infiltrate still noted Agitation--likely secondary to prolonged time in the hospital in the setting of advanced dementia -Risperdal 0.5 mg PO x1 now -Will try Risperdal 0.5 mg PO qhs H/o a-fib--currently rate controlled CAD/HTN--stable -Hold Imdur, BP has been low normal, will continue to monitor and can resume if remains stable Chronic CHF -Hold Lasix BPH -Continue Proscar 5 mg PO qd and Flomax 0.4 mg PO qd Hypothyroidism -Continue Synthroid 100 mcg PO qd Anxiety/depression -Continue Effexor 150 mg PO qd Regular beer intake -[place] records show 12 oz daily, monitor for alcohol withdrawal. Denies any withdrawal symptoms currently DVT prophylaxis -Hold chemical prophylaxis due to bleeding -DANITA velasco and SCDs Code Status -Level I, FULL RESUSCITATION STATUS (Krysten Figueroa ., PA-C) Attending Attestation: Pt seen/examined, chart reviewed, care plan d/w NELLIE Figueroa. I agree w/ the brown components of her documentation. Pt with sundowning last evening and combative behavior. Staff report urine does not smell malodorous. No cough noted by staff. During my visit he repeatedly stated "leave me alone! let me sleep!" while saying this he would swipe at my arm. VSS, no fever gen - elderly thin male in NAD; sleeping at first, then awoke and told me to leave the room neck - no JVD mouth - MMM heart - irregular, s1, s2 lungs - largely CTA b/l, maybe scant rales left base abd - soft, NT ext - no edema neuro - no facial droop; strength seems to be about 5/5 all 4 limbs Hb 9.4 Cr 1.5 A/P: 1. acute/chronic anemia; acute component 2nd to GI blood loss - exact etiology uncertain as EGD failed to demonstrate source of bleeding. GI to defer on colonoscopy at this time. H/H stable over last 48 hours. 2. h/o PUD - on PPI at HS. 3. 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 4. h/o a. fib - NOT on anticoagulation due to GI bleeding and chronic anemia. 5. acute kidney injury - resolved. 6. CKD stage 3 - stable. 7. hypothyroidism - TSH 08/2016 was normal; continue synthroid. 8. BPH - continue finasteride and flomax. 9. CAD - no ischemic sx's at this time. 10. DVT proph - SCDs; chemical means contraindicated. 11. encephalopathy in setting of dementia - supportive care; likely hospital psychosis although metabolic causes should be r/o if he continues with delirium (u/a, urine cx, etc). Start risperdal 0.5mg BID. 12. cough - cxr today with minimal LLL infiltrate. I am unclear if this represents infectious process. Cough no longer heard by staff. No fever or leukocytosis. Follow. left message for his son at # listed in chart Corey Mac MD (Corey Mac MD)
[2016-09-24 15:33] VITALS: BP 109/63; PULSE 73; TEMP 37.1; O2SAT 92
[2016-09-24] MEDS ORDERED: RISPERIDONE 0.5 MG TAB PO SCH (21:00)
[2016-09-24] MEDS: TAMSULOSIN HCL 0.4 MG CAP PO SCH (21:00)
[2016-09-24] MEDS: PANTOprazole SOD 40 MG TAB PO SCH (21:00)
[2016-09-24 21:55] VITALS: O2SAT 92
[2016-09-25 02:49] VITALS: O2SAT 92
[2016-09-25] MEDS: LEVOTHYROXINE 100 MCG TAB PO SCH (06:30)
[2016-09-25] MEDS: VENLAFAXINE HCL XR 150 MG CAPXR PO SCH (09:00)
[2016-09-25] MEDS: FLUTICASONE PROPIONATE NA SPR 16 GM BTL NAE SCH (09:00)
[2016-09-25] MEDS: FINASTERIDE 5 MG TAB PO SCH (09:00)
[2016-09-25] MEDS ORDERED: RISPERIDONE 0.5 MG TAB PO ONE (10:09)
[2016-09-25 10:31] VITALS: O2SAT 97
[2016-09-25 10:35] VITALS: BP 108/71; PULSE 80; TEMP 36.4; O2SAT 97
--- NOTE | 2016-09-25 11:21 | Hospitalist Progress Note ---
Hospitalist Progress Note Date of Service Sep 25, 2016. (Krysten Figueroa ., PA-C) Subjective Pt evaluation today including: conversation w/ patient, physical exam, chart review (pt refusing vitals and labs), review of inpatient medication list PO Intake: Refusing food Voiding: incontinence Overnight patient was combative and uncooperative, attempting to kick and swing at staff. He refused evening meds. This morning, the patient was refusing vitals and lab draws. Refusing food. Upon my examination, patient was calmer but very disoriented. Unable to obtain reliable ROS due to mental status. Additional Comments: Unable to obtain reliable ROS from patient due to mental status. (Krysten Figueroa ., PA-C) Objective Vital Signs Date Time Temp Pulse Resp B/P Pulse Ox O2 Delivery O2 Flow Rate FiO2 09/25/16 10:35 36.4 80 26 108/71 97 Room Air 09/25/16 10:31 97 Room Air 09/25/16 08:00 Room Air 09/25/16 02:49 92 Room Air 09/24/16 21:55 92 Room Air 09/24/16 20:00 Nasal Cannula 2.0 09/24/16 16:00 Nasal Cannula 2.0 09/24/16 15:33 37.1 73 20 109/63 92 Nasal Cannula 2.0 09/24/16 12:51 Nasal Cannula 09/24/16 11:36 76 16 122/76 94 Nasal Cannula 2.0 (Krysten Figueroa ., PA-C) Physical Exam General Appearance: WD/WN, no apparent distress Eyes: normal inspection, sclerae normal, + pertinent finding (pt uncooperative , exam limited) ENT: normal ENT inspection, hearing grossly normal, + pertinent finding (pt uncooperative, exam limited) Neck: supple, no JVD, trachea midline Respiratory/Chest: lungs clear, normal breath sounds, no respiratory distress Cardiovascular: regular rate, rhythm, no gallop, + systolic murmur Abdomen: normal bowel sounds, soft, + tenderness (reports diffuse tenderness, no guarding) Extremities: non-tender, normal inspection, no pedal edema Neurologic/Psychiatric: alert, + disoriented (disoriented to place and time, would not tell me his name or but unclear whether this is due to disorientation or being uncooperative), + pertinent finding (flat affect) Skin: normal color, warm/dry, no rash (Krysten Figueroa ., PA-C) Laboratory Results Last 24 Hours Test 09/24/16 11:18 09/25/16 04:44 White Blood Count 5.97 K/uL Red Blood Count 3.28 M/uL Hemoglobin 9.4 g/dL Hematocrit 28.1 % Mean Corpuscular Volume 85.7 fL Mean Corpuscular Hemoglobin 28.7 pg Mean Corpuscular Hemoglobin Concent 33.5 g/dl RDW Standard Deviation 50.3 fL RDW Coefficient of Variation 16.2 % Platelet Count 370 K/uL Mean Platelet Volume 9.2 fL Sodium Level 141 mmol/L Potassium Level 4.1 mmol/L Chloride Level 108 mmol/L Carbon Dioxide Level 24 mmol/L Anion Gap 9.0 mmol/L Blood Urea Nitrogen 18 mg/dl Creatinine 1.50 mg/dl Est Creatinine Clear Calc Drug Dose 29.0 ml/min Estimated GFR () 47.2 Estimated GFR (Non- 40.7 BUN/Creatinine Ratio 11.7 Random Glucose 94 mg/dl Calcium Level 8.7 mg/dl (Krysten Figueroa ., PA-C) Assessment and Plan 89 y/o male with a history of a-fib, anemia, BPH, CKD stage III, CAD, HTN, CHF, HLD, hypothyroidism, and PUD who presents to the ED on 09/20 with dark, tarry stools per [facility] nursing and presumed upper GI bleed. Pt had recently had a blood transfusion ordered by Dr. Morrell at [facility] on 08/28/16 for a total of 2 units PRBCs. Hgb 7.9 upon arrival. Upper GI bleed -Admitted to telemetry. Transfer to med/surg as medically stable. Mental status may actually improve on medical floor -Check H&H q6h -Given 1 unit PRBC 09/20, Hgb after transfusion 7.7 -1 unit given PRBC given 09/22, Hgb 9.6 after tranfusion -Hgb 8.8 on 09/23 -GI consulted, appreciate recs: EGD showed hiatal hernia, otherwise normal -D/C IVF -Continue Protonix 40 mg PO qd -Zofran 4 mg IV q6h -Tolerating full liquids, advance to regular diet as tolerated Acute on chronic anemia secondary to acute blood loss--stable -Hgb has remained stable for over 24 hours, last Hgb 09/24 was 9.4 Cough, increased O2 requirement--pt does not use supplemental O2 at baseline, still requiring 2L NC now -CXR 09/23 showed small parenchymal infiltrate left base -Repeat CXR 09/24 shows no significant change, left base infiltrate still noted -Probable PNA, will start Levaquin 750 mg PO q48h, renally dosed -Combivent inhaler QIDR Agitation--likely secondary to prolonged time in the hospital in the setting of advanced dementia -Risperdal 0.5 mg PO BID -Pt refused Risperdal yesterday, spoke with nursing about putting medication in pt's food. Was able to get medication in this am H/o a-fib--currently rate controlled CAD/HTN--stable -Hold Imdur, BP has been low normal, will continue to monitor and can resume if remains stable Chronic CHF -Hold Lasix BPH -Continue Proscar 5 mg PO qd and Flomax 0.4 mg PO qd Hypothyroidism -Continue Synthroid 100 mcg PO qd Anxiety/depression -Continue Effexor 150 mg PO qd Regular beer intake -[facility] records show 12 oz daily, monitor for alcohol withdrawal. DVT prophylaxis -Hold chemical prophylaxis due to bleeding -DANITA velasco and SCDs Code Status -Level I, FULL RESUSCITATION STATUS Dispo -Pt is a bed hold at [facility] at [facility], however currently too agitated to return, not eating or taking meds -Pt.'s , Jennifer Márquez, reachable at (Krysten Figueroa ., PA-C) Attending Attestation: Pt seen/examined, chart reviewed, care plan d/w NELLIE Figueroa. I agree w/ the brown components of her documentation. Pt with sundowning last evening and combative behavior once again. This am patient DID take the risperdal and slept for a few hours. During my assessment, which occurred after he slept, he was awake, alert, and very pleasant. He was noted to be coughing. VSS, no fever gen - elderly thin male in NAD; awake, alert, pleasant for me neck - no JVD mouth - MMM heart - irregular, s1, s2 lungs - b/l wheezes with course BS/slight crackle left base abd - soft, NT ext - no edema A/P: 1. acute/chronic anemia; acute component 2nd to GI blood loss - exact etiology uncertain as EGD failed to demonstrate source of bleeding. However, H/H has been stable. Small intestinal AVM possible source - see below. 2. h/o PUD - on PPI at HS. 3. 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 4. h/o a. fib - NOT on anticoagulation due to GI bleeding and chronic anemia. 5. acute kidney injury - resolved. 6. CKD stage 3 - stable. 7. hypothyroidism - TSH 08/2016 was normal; continue synthroid. 8. DVT proph - SCDs; chemical means contraindicated. 9. encephalopathy in setting of dementia - supportive care; likely hospital psychosis although metabolic cause from pulmonary infection could be contributing. Cont risperdal 0.5mg BID. Try to keep patient awake during the day, orient frequently, etc. 10. suspected LLL pneumonia - aspiration? was this community-acquired and there was simply a delay in seeing it radiographically? start levaquin. start combivent. 11. anorexia - likely due to #10 above. left message for his son on 09/24 Ms. Figueroa spoke with today on 09/25 Corey Mac MD (Corey Mac MD)
[2016-09-25] MEDS ORDERED: LEVOFLOXACIN 750 MG TAB PO ONE (15:00)
[2016-09-25 15:08] VITALS: BP 103/51; PULSE 76; TEMP 36.8; O2SAT 92
[2016-09-25] MEDS: IPRATROPIUM BROMIDE/ALBUTEROL respimat INH INH SCH ×2 (15:53→20:06)
[2016-09-25 16:00] VITALS: O2SAT 92
[2016-09-25] MEDS: RISPERIDONE 0.5 MG TAB PO SCH (20:06)
[2016-09-25] MEDS: TAMSULOSIN HCL 0.4 MG CAP PO SCH (20:09)
[2016-09-25] MEDS: PANTOprazole SOD 40 MG TAB PO SCH (20:09)
[2016-09-25 23:26] VITALS: BP 113/54; PULSE 100; TEMP 36.3; O2SAT 90
[2016-09-26] MEDS: LEVOTHYROXINE 100 MCG TAB PO SCH (06:30)
[2016-09-26 07:22] VITALS: BP 94/62; PULSE 89; TEMP 37.4; O2SAT 77
[2016-09-26] MEDS: RISPERIDONE 0.5 MG TAB PO SCH (08:00)
[2016-09-26] MEDS: IPRATROPIUM BROMIDE/ALBUTEROL respimat INH INH SCH ×4 (08:00→20:00)
[2016-09-26] MEDS: FLUTICASONE PROPIONATE NA SPR 16 GM BTL NAE SCH (08:05)
[2016-09-26] MEDS: FINASTERIDE 5 MG TAB PO SCH (09:00)
[2016-09-26] MEDS: VENLAFAXINE HCL XR 150 MG CAPXR PO SCH (09:00)
[2016-09-26 15:34] VITALS: BP 122/55; PULSE 86; TEMP 36.4; O2SAT 88
[2016-09-26] MEDS ORDERED: LEVOFLOXACIN / D5W 500 MG in PREMIXED IN D5W 100 ML IV SCH (15:45)
[2016-09-26 15:49] LABS: HEMATOCRIT 28.2 % (42-52); MEAN CELL VOLUME 83.9 fL (80-100); MEAN CORPUSCULAR HEMOGLOBIN 28.6 pg (25-34); MEAN PLATELET VOLUME 8.8 fL (7.4-10.4); PLATELET COUNT 420 K/uL (130-400); RED BLOOD COUNT 3.36 M/uL (4.7-6.1); WHITE BLOOD COUNT 14.71 K/uL (4.8-10.8)
[2016-09-26 16:10] VITALS: O2SAT 92
[2016-09-26 16:33] LABS: BUN/CREATININE RATIO 16.3 (10-20); CREATININE 2.2 mg/dl (0.60-1.40)
[2016-09-26] MEDS ORDERED: SODIUM CHLORIDE 0.45% 1000ML 1,000 ML IV SCH (17:00)
[2016-09-26] MEDS ORDERED: LEVOFLOXACIN 500MG / D5W IV ONE (17:30)
[2016-09-26] MEDS ORDERED: CEFEPIME CONSULT ACTIVE PRN ×2 (18:00)
[2016-09-26] MEDS ORDERED: LEVOTHYROXINE SODIUM INJ 50 MCG in SYRINGE 0 ML IV ONE (18:00)
[2016-09-26] MEDS ORDERED: SODIUM CHLORIDE 0.9% 500ML 500 ML IV SCH (18:00)
[2016-09-26] MEDS: D5W AND NSS 1,000 ML IV SCH (19:09)
[2016-09-26] MEDS: CEFEPIME IV 1,000 MG in DEXTROSE 5% 100ML 100 ML IV SCH (19:11)
[2016-09-26] MEDS: PANTOprazole INJ 40 MG in SYRINGE 0 ML IV SCH (19:11)
--- NOTE | 2016-09-26 19:26 | Progress Note ---
Subjective Date of Service: Sep 26, 2016. Subjective Pt evaluation today including: conversation w/ family (, son at bedside - two visits), physical exam, chart review, lab review, review of inpatient medication list Pain: nothing perceived by staff PO Intake: very poor Voiding: incontinence Patient by report sundowned much of last night despite use of low-dose risperdal. This am he refused all meds but staff were able to administer the risperdal. He ate a decent dinner last pm per his son (son was visiting during the dinner hour last pm) but did not eat breakfast or lunch today. Some cough noted by and staff. confirms he had a cough prior to coming to the hospital. His son states that during past hospital stays he has become very confused. Problem List Medical Problems: (1) Anemia Status: Chronic (2) GI bleed Status: Acute (3) Hypoxia Status: Acute (4) SOB (shortness of breath) Status: Acute (5) Upper GI bleed Status: Acute (6) Vomiting Status: Acute (7) Weakness Status: Acute Review of Systems unable to obtain 2nd to altered mental status Objective Vital Signs Date Time Temp Pulse Resp B/P Pulse Ox O2 Delivery O2 Flow Rate FiO2 09/26/16 15:34 36.4 86 32 122/55 88 Room Air 09/26/16 08:00 Room Air 09/26/16 07:22 37.4 89 24 94/62 77 Room Air 09/26/16 00:00 Room Air 09/25/16 23:26 36.3 100 20 113/54 90 Room Air Physical Exam General Appearance: no apparent distress, + pertinent finding (sleeping soundly ) ENT: + pertinent finding (MM dry) Neck: no JVD Respiratory/Chest: lungs clear (?slight crackle left base), no respiratory distress, no accessory muscle use Cardiovascular: regular rate, rhythm, no gallop, no murmur Abdomen: normal bowel sounds, non tender, soft, no organomegaly Extremities: no pedal edema Neurologic/Psychiatric: + pertinent finding (sleepy; moves all 4 limbs spontaneously during sleep however) Skin: no rash Laboratory Results Last 24 Hours Test 09/26/16 15:40 09/26/16 16:35 White Blood Count 14.71 K/uL Red Blood Count 3.36 M/uL Hemoglobin 9.6 g/dL Hematocrit 28.2 % Mean Corpuscular Volume 83.9 fL Mean Corpuscular Hemoglobin 28.6 pg Mean Corpuscular Hemoglobin Concent 34.0 g/dl RDW Standard Deviation 50.7 fL RDW Coefficient of Variation 16.4 % Platelet Count 420 K/uL Mean Platelet Volume 8.8 fL Sodium Level 141 mmol/L Potassium Level 4.0 mmol/L Chloride Level 107 mmol/L Carbon Dioxide Level 25 mmol/L Anion Gap 9.0 mmol/L Blood Urea Nitrogen 36 mg/dl Creatinine 2.20 mg/dl Est Creatinine Clear Calc Drug Dose 19.8 ml/min Estimated GFR () 29.7 Estimated GFR (Non- 25.6 BUN/Creatinine Ratio 16.3 Random Glucose 109 mg/dl Calcium Level 9.0 mg/dl Bedside Glucose 113 mg/dl Assessment and Plan 89yo male with: 1. encephalopathy - likely multifactorial - dementia with behavioral disturbance, hospital psychosis, sedative effects of risperdal, +/- metabolic causes from LLL pneumonia. I had 2 lengthy discussions with his /son at bedside discussing this issue. We talked about the sleep/wake cycle being reversed (he has not slept at night for 2-3 nights), his combative behavior (well documented by nursing staff), his predilection for delirium (has dementia and has had delirium in the past while hospitalized), etc. We discussed treatment options - trying to reinforce a normal sleep/wake cycle, use of sitters, use of restraints, low-dose antipsychotics. With respect to latter I explained we try to reserve them only for circumstances where staff and /or the patient is at risk of harm. On the 2nd visit his requested the risperdal be stopped. I honored that request. I also offered psych consult to assist with med management. Will obtain CT head to exclude a new intra-cranial process such as stroke or ICH. 2. anorexia, concern of dehydration - oral intake has been erratic and he appears to be getting dehydrated. Restart maintenance fluids. Will begin with fluid bolus. 3. LLL pneumonia - I am uncertain if this was present at admission ( reports a cough at [facility]) or if this is hospital-acquired. He received 1 dose of oral levaquin yesterday. Will change levaquin to IV and also place on cefepime to get better gram neg coverage if his is hospital-associated. 4. acute/chronic anemia; acute component 2nd to GI blood loss - exact etiology uncertain as EGD failed to demonstrate source of bleeding. However, H/H has been stable. Small intestinal AVM possible source - see below. 5. h/o PUD - on PPI at HS. Change to IV due to erratic oral intake. 6. 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 7. h/o a. fib - NOT on anticoagulation due to GI bleeding and chronic anemia. 8. acute kidney injury - was resolved, now creatinine prasad due to poor oral intake. Restart NS hydration and Repeat BMP in AM. 9. CKD stage 3 - Cr 1.7-1.8 is baseline. 10. hypothyroidism - TSH 08/2016 was normal; continue synthroid but change to IV due to difficulty taking PO. 11. DVT proph - SCDs; chemical means contraindicated. updated and son twice today at bedside time 40 minutes Continued [facility] stay due to: inadequate po fluid intake, ambulation difficulties , multiple IV medications needed Discharge planning: senior care facility
[2016-09-26] MEDS ORDERED: RISPERIDONE 0.5 MG TAB PO SCH (21:00)
[2016-09-26] MEDS: TAMSULOSIN HCL 0.4 MG CAP PO SCH (22:42)
[2016-09-27 00:10] VITALS: BP 134/85; PULSE 68; TEMP 34.5; O2SAT 94
[2016-09-27 07:05] LABS: BASO % 0.1 %; BASO ABS # 0.01 K/uL (0-0.2); EOS % 1.2 %; HEMATOCRIT 24.8 % (42-52); IG% 0.1 %; LYMPH % 14.5 %; LYMPH ABS # 0.97 K/uL (1.2-3.4); MEAN CELL VOLUME 85.2 fL (80-100); MEAN CORPUSCULAR HEMOGLOBIN 29.2 pg (25-34); MEAN CORPUSCULAR HGB CONC 34.3 g/dl (32-36); MONO % 8.7 %; NEUT % 75.4 %; PLATELET COUNT 366 K/uL (130-400); RED BLOOD COUNT 2.91 M/uL (4.7-6.1); WHITE BLOOD COUNT 6.67 K/uL (4.8-10.8)
[2016-09-27 07:40] LABS: BUN/CREATININE RATIO 18.6 (10-20); CALCIUM 8.5 mg/dl (8.5-10.1); CREATININE 1.7 mg/dl (0.60-1.40); MAGNESIUM 2.3 mg/dl (1.8-2.4)
[2016-09-27 07:44] LABS: ANISOCYTOSIS PRESENT; COMPLETE YES
[2016-09-27] MEDS: IPRATROPIUM BROMIDE/ALBUTEROL respimat INH INH SCH ×4 (08:00→21:52)
[2016-09-27] MEDS ORDERED: LEVOTHYROXINE SODIUM INJ 50 MCG in SYRINGE 0 ML IV SCH (09:00)
[2016-09-27 09:27] VITALS: BP 126/70; PULSE 60; TEMP 36.1; O2SAT 93
[2016-09-27] MEDS: FINASTERIDE 5 MG TAB PO SCH (09:29)
[2016-09-27] MEDS: FLUTICASONE PROPIONATE NA SPR 16 GM BTL NAE SCH (09:30)
[2016-09-27] MEDS: LEVOFLOXACIN 250MG / D5W IV SCH (09:31)
[2016-09-27] MEDS: D5W AND NSS 1,000 ML IV SCH ×2 (09:31→21:52)
[2016-09-27] MEDS: VENLAFAXINE HCL XR 150 MG CAPXR PO SCH (09:31)
[2016-09-27] MEDS ORDERED: LEVOFLOXACIN 750 MG TAB PO SCH (11:00)
[2016-09-27] MEDS: PANTOprazole INJ 40 MG in SYRINGE 0 ML IV SCH (14:13)
--- NOTE | 2016-09-27 15:22 | DIAGNOSTIC IMAGING REPORT ---
HEAD CT NONCONTRAST CT DOSE: 691.05 mGy.cm HISTORY: Mental status change eval for new stroke, ICH TECHNIQUE: Multiaxial CT images of the head were performed without the use of intravenous contrast. Comparison: 10/28/2015 Findings: The paranasal sinuses and mastoid air cells are clear. There is a brain is similar compared to the prior study. Moderate atrophy. Ventricular prominence stable from the prior exam. 9 mm hyperdensity medially posterior to the occipital horn right lateral ventricle unchanged in the prior exam. This is considered a chronic finding. Moderate chronic small vessel change. No evidence for acute intracranial hemorrhage. No midline shift. Impression: Chronic and age-related change. No acute process. Electronically signed by: Anson Villarreal M.D. 09/27/2016 3:21 PM Dictated Date/Time: 09/27/2016 3:18 PM
[2016-09-27 16:05] VITALS: O2SAT 92
[2016-09-27 16:12] VITALS: BP 119/74; PULSE 64; TEMP 36.5; O2SAT 89
[2016-09-27] MEDS: CEFEPIME IV 1,000 MG in DEXTROSE 5% 100ML 100 ML IV SCH (17:52)
[2016-09-27 18:45] LABS: URINE APPEARANCE CLEAR (CLEAR); URINE BILIRUBIN NEG (NEG); URINE COLOR YELLOW; URINE NITRITE NEG (NEG); URINE SPECIFIC GRAVITY 1.015 (1.000-1.030); UROBILINOGEN NEG (NEG)
[2016-09-27 18:55] LABS: MANUAL MICROSCOPIC REQUIRED? NO; REVIEW REQ? NO
[2016-09-27] MEDS: TAMSULOSIN HCL 0.4 MG CAP PO SCH (21:52)
--- NOTE | 2016-09-27 22:05 | Progress Note ---
Subjective Date of Service: Sep 27, 2016. Subjective Pt evaluation today including: conversation w/ patient, conversation w/ family (son, by phone), physical exam, chart review, lab review, review of studies (CT head), review of inpatient medication list Pain: "everywhere" PO Intake: improved per staff Voiding: no voiding problems Staff report that yesterday the patient got severely agitated while trying to have CT head. After returning to the medical floor he slept the rest of the night. This am he was awake and ate breakfast/drank coffee/etc. He also ate lunch and spent some time in the chair. Staff report no episodes of combativeness. Son by phone confirms his father was much better today. During my visit with Mr. Márquez he complained of "hurting everywhere." When asked to be more specific he had a hard time pinpointing the pain. However, towards the end of the visit, he complained of his lower abdomen. Problem List Medical Problems: (1) Anemia Status: Chronic (2) GI bleed Status: Acute (3) Hypoxia Status: Acute (4) SOB (shortness of breath) Status: Acute (5) Upper GI bleed Status: Acute (6) Vomiting Status: Acute (7) Weakness Status: Acute Review of Systems unable to obtain 2nd to dementia Objective Vital Signs Date Time Temp Pulse Resp B/P Pulse Ox O2 Delivery O2 Flow Rate FiO2 09/27/16 16:12 36.5 64 24 119/74 89 Room Air 09/27/16 16:05 92 Room Air 09/27/16 09:27 36.1 60 16 126/70 93 Nasal Cannula 2.0 09/27/16 08:00 Nasal Cannula 2.0 09/27/16 00:25 Nasal Cannula 2.0 09/27/16 00:10 34.5 68 18 134/85 94 Nasal Cannula 2.0 Physical Exam General Appearance: no apparent distress, + pertinent finding (more awake, alert today; during the exam he said "I'm ready to quickly") ENT: + pertinent finding (MM dry) Neck: no JVD Respiratory/Chest: lungs clear, no respiratory distress, no accessory muscle use Cardiovascular: regular rate, rhythm, no gallop, no murmur Abdomen: normal bowel sounds, soft, no organomegaly, + tenderness (suprapubic area) Extremities: no pedal edema Neurologic/Psychiatric: alert, + depressed affect, + disoriented Laboratory Results Last 24 Hours Test 09/27/16 06:30 09/27/16 18:15 White Blood Count 6.67 K/uL Red Blood Count 2.91 M/uL Hemoglobin 8.5 g/dL Hematocrit 24.8 % Mean Corpuscular Volume 85.2 fL Mean Corpuscular Hemoglobin 29.2 pg Mean Corpuscular Hemoglobin Concent 34.3 g/dl Platelet Count 366 K/uL Mean Platelet Volume 9.0 fL Neutrophils (%) (Auto) 75.4 % Lymphocytes (%) (Auto) 14.5 % Monocytes (%) (Auto) 8.7 % Eosinophils (%) (Auto) 1.2 % Basophils (%) (Auto) 0.1 % Neutrophils # (Auto) 5.02 K/uL Lymphocytes # (Auto) 0.97 K/uL Monocytes # (Auto) 0.58 K/uL Eosinophils # (Auto) 0.08 K/uL Basophils # (Auto) 0.01 K/uL RDW Standard Deviation 51.0 fL RDW Coefficient of Variation 16.4 % Immature Granulocyte % (Auto) 0.1 % Immature Granulocyte # (Auto) 0.01 K/uL Anisocytosis PRESENT Sodium Level 145 mmol/L Potassium Level 4.0 mmol/L Chloride Level 112 mmol/L Carbon Dioxide Level 22 mmol/L Anion Gap 11.0 mmol/L Blood Urea Nitrogen 32 mg/dl Creatinine 1.70 mg/dl Est Creatinine Clear Calc Drug Dose 25.6 ml/min Estimated GFR () 40.5 Estimated GFR (Non- 35.0 BUN/Creatinine Ratio 18.6 Random Glucose 108 mg/dl Calcium Level 8.5 mg/dl Magnesium Level 2.3 mg/dl Urine Color YELLOW Urine Appearance CLEAR Urine pH 5.0 Urine Specific [place] 1.015 Urine Protein NEG Urine Glucose (UA) NEG Urine Ketones NEG Urine Occult Blood NEG Urine Nitrite NEG Urine Bilirubin NEG Urine Urobilinogen NEG Urine Leukocyte Esterase NEG Assessment and Plan 89yo male with: 1. encephalopathy - likely multifactorial - dementia with behavioral disturbance, hospital psychosis, sedative effects of risperdal, +/- metabolic causes from LLL pneumonia. IMPROVED today. CT head w/o ICH or stroke. Suspect that Rx of his pneumonia plus getting more rest has helped this issue. Cont to provide supportive care, reinforce good sleep/wake cycle, avoid benzos, etc. 2. acute kidney injury - improved. Cont IVF. 3. LLL pneumonia - day #3 of abx (cefepime/levaquin). Plan 7-10 days. I am uncertain if he had the pneumonia brewing when he was admitted or if this is hospital-acquired. Either way he seems clinically improved (wbc count has normalized, etc). 4. acute/chronic anemia; acute component 2nd to GI blood loss - exact etiology uncertain as EGD failed to demonstrate source of bleeding. Small intestinal AVM possible source - see below. H/H dropped overnight but no overt bleeding; may have been hemoconcentration as he was dehydrated and received IVF overnight. Either way repeat CBC in am. 5. h/o PUD - on PPI at HS. 6. 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 7. h/o a. fib - NOT on anticoagulation due to GI bleeding and chronic anemia. 8. CKD stage 3 - Cr 1.7-1.8 is baseline. 9. hypothyroidism - TSH 08/2016 was normal; continue synthroid; change back to PO. 10. DVT proph - SCDs; chemical means contraindicated. 11. suprapubic tenderness - bladder scan checked; PVR 0. U/a checked - normal, not suggestive of UTI. constipation? follow carefully 12. total bodywide pain - most recent sed rate, CPK normal. check b12 level in am. check vitamin D level in am. 13. FEN - cont IVF, bmp in am, appetite improving. updated son by phone today Continued [facility] stay due to: inadequate po fluid intake, ambulation difficulties , multiple IV medications needed Discharge planning: senior living facility
[2016-09-28 00:29] VITALS: BP 106/48; PULSE 32; TEMP 36.4; O2SAT 91
[2016-09-28 03:59] VITALS: PULSE 65; O2SAT 93
[2016-09-28 06:21] LABS: HEMATOCRIT 27.4 % (42-52); MEAN CELL VOLUME 86.2 fL (80-100); MEAN CORPUSCULAR HEMOGLOBIN 28.6 pg (25-34); MEAN CORPUSCULAR HGB CONC 33.2 g/dl (32-36); MEAN PLATELET VOLUME 9.2 fL (7.4-10.4); PLATELET COUNT 389 K/uL (130-400); RED BLOOD COUNT 3.18 M/uL (4.7-6.1); WHITE BLOOD COUNT 5.52 K/uL (4.8-10.8)
[2016-09-28 06:48] LABS: BUN/CREATININE RATIO 14.1 (10-20); CALCIUM 8.6 mg/dl (8.5-10.1); CREATININE 1.6 mg/dl (0.60-1.40); POTASSIUM 3.9 mmol/L (3.5-5.1)
[2016-09-28] MEDS: LEVOTHYROXINE 100 MCG TAB PO SCH (07:03)
[2016-09-28 07:45] VITALS: BP 142/73; PULSE 55; TEMP 36.6; O2SAT 94
[2016-09-28] MEDS: FINASTERIDE 5 MG TAB PO SCH (08:37)
[2016-09-28] MEDS: LEVOFLOXACIN 250MG / D5W IV SCH (08:38)
[2016-09-28] MEDS: VENLAFAXINE HCL XR 150 MG CAPXR PO SCH (08:38)
[2016-09-28] MEDS: FLUTICASONE PROPIONATE NA SPR 16 GM BTL NAE SCH (08:38)
[2016-09-28] MEDS: IPRATROPIUM BROMIDE/ALBUTEROL respimat INH INH SCH ×4 (08:38→21:24)
[2016-09-28] MEDS: D5W AND NSS 1,000 ML IV SCH (10:41)
--- NOTE | 2016-09-28 11:37 | Family Medicine Progress Note ---
Progress Note Date of Service Sep 28, 2016. Subjective Pt evaluation today including: conversation w/ patient, conversation w/ family No acute events patient is oriented Has no complaints, Denies abdominal pain Constitutional: No fever ENT: + hearing loss Respiratory: No dyspnea on exertion, No shortness of breath, No wheezing Cardiovascular: No chest pain Abdomen: No diarrhea, No nausea, No pain, No vomiting Male : No dysuria, No urinary frequency Objective Physical Exam General Appearance: no apparent distress Eyes: PERRL, EOMI ENT: hearing grossly normal Neck: supple Respiratory/Chest: lungs clear, normal breath sounds, no respiratory distress, no accessory muscle use Cardiovascular: regular rate, rhythm, no edema Abdomen: normal bowel sounds, non tender, soft Extremities: non-tender, no pedal edema Neurologic/Psychiatric: alert, normal mood/affect, oriented x 3 Assessment and Plan 89 yo male with: Encephalopathy- likely multifactorial - dementia with behavioral disturbance, hospital psychosis, sedative effects of Risperdal, +/- metabolic causes from LLL pneumonia. Seems markedly improved, oriented x [address] negative Avoid Benzos, Avoid changing rooms. encourage good sleep/wake cycles NIKUNJ on CKD stage 3- improved, at baseline D/C IV fluids, encourage PO intake LLL pneumonia - day #4 of abx (d/c cefepime/levaquin). Clinically improved Switched Levaquin PO 750 QOD acute/chronic anemia; 2/2 GI bleed -EGD was unremarkable H/H Stable overnight. Trend CBC Does have a history of Small intestinal AVM which is a possible source- seen on capsule endoscopy in 2006 Abdominal pain (yesterday) - bladder scan checked; PVR 0. u/a negative No pain today Continue to follow GI prophylaxis Continue Protonix H/O of PUD H/O Afib RRR, not on any anticoagulation 2/2 PUD and Bleeds Hypothyroidism Continue Synthroid DVT proph - SCDs; chemical means contraindicated. Vitamin D Def- start 1000 IU daily
[2016-09-28 15:30] VITALS: BP 104/65; PULSE 86; TEMP 36.6; O2SAT 94
[2016-09-28] MEDS: PANTOprazole SOD 40 MG TAB PO SCH (21:24)
[2016-09-28] MEDS: TAMSULOSIN HCL 0.4 MG CAP PO SCH (21:24)
[2016-09-28 23:37] VITALS: BP 113/73; PULSE 84; TEMP 36.6; O2SAT 96
[2016-09-29] VITALS: O2SAT 96
[2016-09-29] MEDS: LEVOTHYROXINE 100 MCG TAB PO SCH (06:32)
[2016-09-29 07:10] LABS: CREATININE 1.6 mg/dl (0.60-1.40)
[2016-09-29 07:17] LABS: HEMATOCRIT 26.7 % (42-52); MEAN CELL VOLUME 83.7 fL (80-100); MEAN CORPUSCULAR HEMOGLOBIN 27.6 pg (25-34); MEAN PLATELET VOLUME 9.2 fL (7.4-10.4); PLATELET COUNT 460 K/uL (130-400); RED BLOOD COUNT 3.19 M/uL (4.7-6.1); WHITE BLOOD COUNT 5.25 K/uL (4.8-10.8)
[2016-09-29 07:21] VITALS: BP 108/49; PULSE 62; TEMP 36.5; O2SAT 96
[2016-09-29] MEDS: VENLAFAXINE HCL XR 150 MG CAPXR PO SCH (08:21)
[2016-09-29] MEDS: IPRATROPIUM BROMIDE/ALBUTEROL respimat INH INH SCH ×2 (08:21→11:13)
[2016-09-29] MEDS: FINASTERIDE 5 MG TAB PO SCH (08:21)
[2016-09-29] MEDS: FLUTICASONE PROPIONATE NA SPR 16 GM BTL NAE SCH (08:21)
[2016-09-29] MEDS ORDERED: LEVOFLOXACIN 750 MG TAB PO SCH (09:00)
[2016-09-29] MEDS ORDERED: CHOLECALCIFEROL 1000 INTER.UNIT TAB PO SCH (09:00)
[2016-09-29] MEDS ORDERED: LVQ750 PO (09:09)
[2016-09-29] MEDS ORDERED: VTMD1000 PO (09:20)
--- NOTE | 2016-09-29 09:20 | Discharge Instructions ---
Discharge Instructions Admission Reason for Admission: Peptic Ulcer Disease,Upper Gi Bleed Discharge Discharge Diagnosis / Problem: Pneumonia, GI bleed, AMS, NIKUNJ Discharge Goals Goal(s): Decrease discomfort, Increase independence, Diagnostic testing, Therapeutic intervention, Screening Activity Recommendations Activity Level: Assistance Required Therapies: Physical Therapy, Occupational Therapy Lifting Limitations: gradually increase as tolerated Exercise/Sports Limitations: as tolerated Shower/Bathe: no limitations . Additional Information Patient informed of condition: No Advance Directives: No DNR: No Level of Care: Skilled Communicable Disease: No Prognosis: Stable Mckoy Catheter: No Instructions / Follow-Up Instructions / Follow-Up Mr. Márquez was admitted for Upper GI bleed, was given 2 units of blood- H/H stable now, EGD was unremarkable- Recommend rechecking H/H once a week for 2 weeks. Also found to have a pneumonia. Continue Levaquin 750 mg QOD for 2 doses. Acute kidney injury- at baseline Vit D deficiency- supplement for 2000 IU for 1 month and recheck Vit D levels. F/U recommended with PCP and GI Current Hospital Diet Patient's current hospital diet: AHA Diet (Heart Healthy) Discharge Diet Recommended Diet: AHA Diet (Heart Healthy) Procedures Procedures Performed: EGD with bx Pending Studies Studies pending at discharge: no Laboratory Results Hemoglobin A1c Test 07/29/16 06:30 Range/Units Estimated Average Glucose 88 mg/dl Hemoglobin A1c 4.7 4.5-5.6 % Medical Emergencies . Who to Call and When: Medical Emergencies: If at any time you feel your situation is an emergency, please call 911 immediately. . Non-Emergent Contact Non-Emergency issues call your: Primary Care Provider, [employer] . . "Provider Documentation" section prepared by Dagmar Saeed. Core Measure Problem Core Measures: None
--- NOTE | 2016-09-29 10:56 | Discharge Summary ---
Discharge Summary Admission Date: Sep 20, 2016 at 21:09 Discharge Date: Sep 29, 2016 Discharge Disposition: Personal care Principal Diagnosis: Anemia 2/2 GI Blood loss, requiring transfusion Problems/Secondary Diagnoses: Dementia/Delirium NIKUNJ LLL pneumonia Immunizations: Have You Had Influenza Vaccine: Unknown Influenza Vaccine Date: Jun 13, 2012 History of Tetanus Vaccine?: Unknown History of Pneumococcal: Unknown Pneumococcal Date: December 23, 2000 History of Hepatitis B Vaccine: Unknown Procedures: RIGHT SHOULDER MIN 2 VIEWS ROUTINE CLINICAL HISTORY: Right shoulder pain following fall. COMPARISON: Chest radiograph February 08, 2016. FINDINGS: Alignment of the right shoulder is anatomic. There is no acute fracture. There are multiple old right-sided rib fractures. There is mild arthritis of the right shoulder. Deformity of the right clavicle is likely old. IMPRESSION: No acute fracture or dislocation of the right shoulder. CHEST ONE VIEW PORTABLE CLINICAL HISTORY: GI bleed. COMPARISON STUDY: Chest radiograph February 08, 2016. FINDINGS: Left shoulder arthroplasty is unchanged in appearance. No pneumothorax or pleural effusion is present. Cardiomediastinal silhouette is stable. There are healed bilateral rib fractures. Mild bibasilar opacities, left greater than right, are present. There is no evidence of pulmonary edema. IMPRESSION: 1. Bibasilar opacities, left greater than right. The findings could reflect atelectasis or less likely consolidation. Radiographic follow up is recommended. 2. No pneumothorax. 3. Numerous old bilateral rib fractures. HEAD CT NONCONTRAST CT DOSE: 691.05 mGy.cm HISTORY: Mental status change eval for new stroke, ICH TECHNIQUE: Multiaxial CT images of the head were performed without the use of intravenous contrast. Comparison: 10/28/2015 Findings: The paranasal sinuses and mastoid air cells are clear. There is a brain is similar compared to the prior study. Moderate atrophy. Ventricular prominence stable from the prior exam. 9 mm hyperdensity medially posterior to the occipital horn right lateral ventricle unchanged in the prior exam. This is considered a chronic finding. Moderate chronic small vessel change. No evidence for acute intracranial hemorrhage. No midline shift. Impression: Chronic and age-related change. No acute process. EGD: Findings: The upper third of the esophagus, middle third of the esophagus and lower third of the esophagus were normal. The Z-line was regular. A small hiatus hernia was present. The entire examined stomach was normal. Biopsies were taken with a cold forceps for Helicobacter pylori testing. The examined duodenum was normal. Impression: - Normal upper third of esophagus, middle third of esophagus and lower third of esophagus. - Z-line regular. - Small hiatus hernia. - Normal stomach. Biopsied. - Normal examined duodenum. Consultations: Gastroenterology Medication Reconciliation New Medications: Levofloxacin (Levofloxacin) 750 Mg Tab 750 MG PO Q2D@0900 for 2 Days, #2 TAB Continued Medications: Acetaminophen (Tylenol Supp) 650 Mg Sup 1 SUPP WA Q4H PRN for Pain or Fever MAXIMUM 3GM APAP/24 HOURS Acetaminophen Tab (Tylenol) 325 Mg Tab 650 MG PO Q4H PRN for Pain or Fever MAXIMUM 3GM APAP/24 HOURS Ascorbic Acid (Vitamin C) 500 Mg Tab 500 MG PO QAM Benzocaine (Dental) (Anbesol) 10 % Gel 1 APPLN TOP TID PRN for Pain APPLY DIRECTED TO GUMS Bisacodyl (Bisac-Evac) 10 Mg Sup 1 SUPP WA UD PRN for Constipation NEEDED EVERY 48 HOURS IF NO RESULTS FROM MILK OF MAGNESIA Calcitriol (Rocaltrol Cap) 0.25 Mcg Cap 0.25 MCG PO 3XWK TAKE THIS MEDICATION EVERY WEDNESDAY,WEDNESDAY AND WEDNESDAY Cholecalciferol (Vitamin D) 2,000 Unit Tab 2000 INTER.UNIT PO QAM Diphenhydramine Hcl (Benadryl Allergy) 25 Mg Tab 25 MG PO Q4H PRN for Itching Ferrous Sulfate (Ferrous Sulfate) 325 Mg Tab 325 MG PO QAM Finasteride (Proscar) 5 Mg Tab 5 MG PO QAM Fluticasone Propionate (Nasal) (Flonase Allergy Relief) 50 Mcg/Act Spr 2 SPRAYS VINNY QAM Furosemide (Lasix) 20 Mg Tab 20 MG PO BID Isosorbide Mononitrate (Isosorbide Mononitrate ER) 30 Mg Tabcr 30 MG PO QAM Levothyroxine Sodium (Levothyroxine Sodium) 100 Mcg Tab 100 MCG PO QAM, TAB Magnesium Hydroxide (Milk of Magnesia 400 mg/5Ml) 1 Jacki Jacki 30 ML PO UD PRN for Constipation NEEDED FOR NO BOWEL MOVEMENT FOR 2 DAYS Nitroglycerin (Nitrostat) 0.4 Mg Tab 0.4 MG UT UD PRN for Chest Pain, BTL PLACE ONE TABLET UNDER THE TONGUE EVERY 5 MINUTES FOR UP TO 3 DOSES IF NEEDED FOR CHEST PAIN Pantoprazole (Protonix) 40 Mg Tab 40 MG PO QPM, TAB Polyethylene Glycol 3350 (Bulk (Polyethylene Glycol 3350) 1 Pow Pow 6.5 GM PO QAM, GM MIX IN 8 OUNCES OF WATER Promethazine HCl (Phenadoz) 12.5 Mg Supp 1 SUPP WA Q6H PRN for Nausea Skin Protectants, Misc. (A+D First Aid) 1 Oin Oin 1 APPLN TOP TID PRN for Skin Irritation APPLY NEEDED TO LOWER EXTREMITY SKIN LESIONS Sodium Phosphate/Biphosphate (Fleet Enema) Angie 1 EA WA UD PRN for Constipation, BTL NEEDED EVERY 72 HOURS IF NO RESULTS FROM MPM OR DULCOLAX SUPPOSITORY Tamsulosin Hcl (Flomax) 0.4 Mg Cap 0.4 MG PO HS Venlafaxine Hcl (Effexor Xr) 150 Mg Cap 150 MG PO QAM, CAP Vitamin B Cmplx/Vitc/Folic Ac (Nephrocaps) Cap 1 CAP PO QAM, CAP [Beer] () 12 OZ PO Q24H PRN for For Wishes Discharge Exam This is an 89 y/o Male who presented from [facility] due to concerns about shoulder pain but nurses were concerned about melena. His hgb was 7.9 and then 6.7. He was started on a Protonix drip and given 2 units of pRBCs. GI was consulted and an EGD was done. 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 His H/H remained stable there after. In the interim , patient did develop a cough and require supplemental O2. There was concern about a pneumonia, possibly hospital acquired. He was started on Levaquin and cefepime and eventually de-escalated to Levaquin. He did have mild kidney injury that resolved to baseline with hydration. He also did become encephalopathic secondary to hospital delirium and possible Risperdal use. This was eventually rectified with supportive care and patient remained near baseline mentation. Head CT was unremarkable. He improved clinically and was stable for discharge. All other comorbidities and acute issues were managed as appropriate. Review of Systems: Constitutional: No chills, No fever Respiratory: No dyspnea at rest, No dyspnea on exertion, No shortness of breath, No sputum, No wheezing Cardiovascular: No chest pain Musculoskeletal: + joint pain, + muscle pain, No calf pain, No swelling Genitourinary - Male: No dysuria, No urinary frequency Physical Exam: General Appearance: no apparent distress Eyes: PERRL Neck: supple, no adenopathy Respiratory/Chest: lungs clear, normal breath sounds, no respiratory distress Cardiovascular: regular rate, rhythm, no edema Abdomen / GI: normal bowel sounds, non tender, soft Extremities: no calf tenderness, no pedal edema Neurologic/Psychiatric: alert, + depressed affect Hospital Course Total Time Spent: Less than 30 minutes This includes examination of the patient, discharge planning, medication reconciliation, and communication with other providers. Discharge Instructions Please refer to the electronic Patient Visit Report (Discharge Instructions) for additional information. Resident Tracking Resident Involvement: Resident Care Provided Care Provided: Adult Hospital Medicine
[2016-09-29 11:05] VITALS: BP 108/49; PULSE 62; TEMP 36.5; O2SAT 96
[2016-10-19] MEDS ORDERED: ONDA4TAB46 PO (13:35)
[2016-10-19] MEDS ORDERED: BUSP5TAB59 PO (13:35)
[2016-10-19] MEDS ORDERED: vitamin d PO (13:35)
[2016-10-19] MEDS ORDERED: OXGN (13:35)
[2016-10-19] MEDS ORDERED: NUTR-977 GJT (13:35)
[2016-10-19] MEDS ORDERED: ANBESOL TOP (13:35)
[2016-10-19] MEDS ORDERED: VITACAP26 PO (13:35)
[2016-10-19] MEDS ORDERED: dulcolax RE (13:35)
[2016-10-19] MEDS ORDERED: SODIENE PR (13:35)
[2016-10-29] MEDS ORDERED: VENL150C PO (10:27)
[2016-11-30] MEDS ORDERED: BENZ10GE38 (13:32)
[2017-03-05] MEDS ORDERED: CEPH500C2 PO (12:32)
[2017-03-05] MEDS ORDERED: LORA2CON IM (12:32)
[2017-03-05] MEDS ORDERED: GABA-112 PO (12:32)
[2017-03-05] MEDS ORDERED: RISP0.258 PO (12:32)
[2017-03-05] MEDS ORDERED: RISP1TAB68 PO (12:32)
[2017-03-25] MEDS ORDERED: VENL1CAP92 PO (11:24)
[2017-03-25] MEDS ORDERED: RISP1TAB68 PO (11:24)
[2017-05-05] MEDS ORDERED: ISOS30TA3 PO (08:54)
== END 2016-09-29 14:09 | DRG 377 ==
LOC: ENRESERVDT → ENRESERVTM → EDBD 18:33 → C.EDA 18:34 → C.2E 21:09 → C.2T 09-23 00:51 → C.MS2W 09-24 13:05
PROVIDERS: ADMIT Hospitalist; ATTEND Internal Medicine
PROC: 0DB68ZX Excision of Stomach, Via Natural or Artificial Opening Endoscopic, Diagnostic (ICD-10-PCS; principal; 2016-09-21 12:21)
DX: K55.21 Angiodysplasia of colon with hemorrhage (principal); J18.9 Pneumonia, unspecified organism; F03.91 Unspecified dementia, unspecified severity, with behavioral disturbance; N17.9 Acute kidney failure, unspecified; F05 Delirium due to known physiological condition; D62 Acute posthemorrhagic anemia; G93.40 Encephalopathy, unspecified; N18.3 Chronic kidney disease, stage 3 (moderate); I12.9 Hypertensive chronic kidney disease with stage 1 through stage 4 chronic kidney disease, or unspecified chronic kidney disease; T43.505A Adverse effect of unspecified antipsychotics and neuroleptics, initial encounter; R63.0 Anorexia; E55.9 Vitamin D deficiency, unspecified; I48.91 Unspecified atrial fibrillation; E03.9 Hypothyroidism, unspecified; I25.10 Atherosclerotic heart disease of native coronary artery without angina pectoris; N40.0 Benign prostatic hyperplasia without lower urinary tract symptoms; F41.9 Anxiety disorder, unspecified; F10.20 Alcohol dependence, uncomplicated; F32.9 Major depressive disorder, single episode, unspecified; Z79.899 Other long term (current) drug therapy; Z88.6 Allergy status to analgesic agent; Z88.8 Allergy status to other drugs, medicaments and biological substances; Z87.11 Personal history of peptic ulcer disease; Z87.19 Personal history of other diseases of the digestive system